=== PATIENT | male | born 1970 | race Caucasian/White ===

== ENCOUNTER 2020-03-03 12:00 | Outpatient (CLI) | payer BC, SELFPAY | END 2020-03-03 12:01 | disposition home or self-care (01) | LOC: SLEEP 03-05 11:01 | PROVIDERS: Family Provider Family Medicine; PCP Family Medicine; Visit Provider Family Medicine | DX: G47.10 Hypersomnia, unspecified (principal) | CPT/HCPCS: G0399 ==

== ENCOUNTER 2020-09-22 23:21 | Inpatient (IN) | payer SELFPAY ==
--- NOTE | 2020-09-22 23:25 | XRR_ITS ---
PROCEDURE INFORMATION: Exam: XR Chest Exam date and time: 09/22/2020 11:37 PM Age: 49 years old Clinical indication: Patient HX: Epigastric pain 2-3 days; Additional info: Cp TECHNIQUE: Imaging protocol: XR of the chest Views: Frontal portable upright view of the chest. COMPARISON: No relevant prior studies available. FINDINGS: Tubes, catheters and devices: EKG leads are present overlying the chest. Lungs: The lungs are clear bilaterally. The pulmonary vasculature is normal. Pleural spaces: No pleural effusion. No pneumothorax. Heart/Mediastinum: The heart is normal in size and contour. Bones/joints: Leftward midthoracic spinal curvature. No acute chest wall abnormality identified. XR/XR chest 1V portable [id number] IMPRESSION: No acute cardiopulmonary abnormality identified.
--- NOTE | 2020-09-22 23:26 | ECG_ITS ---
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 Measurements Intervals [place] Rate: 83 P: 36 MO: 150 QRS: 19 QRSD: 98 T: 65 QT: 360 QTc: 425 Interpretive Statements SINUS RHYTHM NONSPECIFIC ST & T-WAVE ABNORMALITY No previous ECG available for comparison Electronically Signed On 09-23-2020 23:49:54 ASSISTANT PROFESSOR OF SPANISH by Omer Elliott M.D. [id number] f
[2020-09-22 23:28] VITALS: BP 186/121; PULSE 81; RESP 18; TEMP 36.7; O2SAT 97; BMI 30.5
[2020-09-22] MEDS: lidocaine 2% viscous 15 ML, aluminum-mag hydrox-simethicon 30 ML, sucralfate oral liq 1 GM PO (23:33)
--- NOTE | 2020-09-22 23:39 | ED_ITS ---
HPI - Abdominal Pain General: Chief Complaint: Abdominal Pain Stated Complaint: chest pain, poss gastritis, 910 pain Time Seen by Provider: 09/22/20 23:27 Source: patient Mode of arrival: ambulatory Limitations: no limitations History of Present Illness: HPI narrative: 49-year-old male states that over the last 3 days has been having epigastric abdominal pain along with chest pain. States his pain seems to come anytime he eats and is a sharp burning pain in his upper abdomen. He states tonight after he ate he started having pain he rated a 6 out of 10. Denies any shortness of breath. Denies any worsening improving factors. Denies any vomiting diarrhea. Associated Symptoms: Denies chills, diarrhea, dysuria, fever(s), nausea and vomiting Review of Systems Const: Denies: fever(s), chills, body aches or change in appetite Eyes: Denies: blurry vision or eye discomfort ENMT: Denies: throat pain or dental pain Card: Reports: chest pain Resp: Denies: dyspnea GI: Denies: abdominal pain, nausea, vomiting or diarrhea : Denies: dysuria Musc: Denies: neck pain or back pain Skin/Breast: Denies: rash Neuro: Denies: headache(s) Psych: Denies: depression Rene/Lymph: Denies: easy bruising All/Imm: Denies: urticaria Physical Exam Const: COMMON NORMALS: no acute distress, patient oriented x3 and healthy appearing HENMT: COMMON NORMALS: normocephalic and atraumatic HEAD & SCALP: normocephalic and atraumatic Eye: COMMON NORMALS: Equal, round and reactive pupils present and EOMs intact bilaterally PUPIL: Yes Equal, round and reactive pupils present Neck/C-Spine: COMMON NORMALS: full ROM and supple Chest: COMMONS NORMALS: normal inspection of the chest and normal palpation of entire chest wall Resp: COMMON NORMALS: normal respiratory effort, No retractions, No use of accessory muscles and clear to auscultation bilaterally AUSCULTATION: clear to auscultation bilaterally Cardio: COMMON NORMALS: regular rate, regular rhythm and No murmurs present (Cardio) RATE: regular rate RHYTHM: regular rhythm GI: COMMON NORMALS: Normal to inspection, nondistended, normoactive bowel sounds present, Soft to palpation, non-tender and no masses PALPATION: Yes Soft to palpation Extremity: COMMON NORMALS: normal to inspection and full ROM Neuro: COMMON NORMALS: patient oriented x3, moves all extremities and no focal motor deficits Psych: COMMON NORMALS: mental status grossly normal, Normal thought process present and cooperative THOUGHT PROCESS: Normal thought process present Skin: COMMON NORMALS: no rashes or lesions noted and no wounds GENERAL SKIN EXAM: no rashes or lesions noted Course Vital Signs: Vital signs: Vital Signs Temperature 98.1 F 09/22/20 23:28 Pulse Rate 89 09/23/20 00:51 Respiratory Rate 18 09/23/20 00:51 Blood Pressure 167/109 09/23/20 00:51 Pulse Oximetry 97 09/23/20 00:51 MDM - Abdominal Pain MDM Narrative: Medical decision making narrative: Patient presents here with chest pain and has an elevated troponin. This is consistent with an NSTEMI. Patient's pain was actually relieved here with a GI cocktail. I spoke to the hospitalist will admit at this time. Patient given Lovenox in the ER. Lab Data: Labs: Lab Results 09/22/20 09/22/20 09/22/20 Range/Units 23:00 23:00 23:00 WBC 11.6 H (4.0-10.0) 10^3/ uL RBC 5.34 H (4.1-5.3) 10^6/u L Hgb 17.2 H (11.7-16.6) g/dL Hct 48.3 (42.0-52.0) % MCV 90.4 (80-94) fL MCH 32.2 (28.0-34.0) pg MCHC 35.6 (30.0-36.0) g/dL RDW 12.2 (12.1-15.1) % Plt Count 296 (130-400) 10^3/c mm MPV 9.3 (7.4-10.4) fL Neut % (Auto) 77.7 % Lymph % (Auto) 12.8 % [place] % (Auto) 7.6 % Eos % (Auto) 0.9 % Baso % (Auto) 0.6 % Neut # (Auto) 9.03 H (1.8-7.7) 10^3/u L Lymph # (Auto) 1.5 (0.8-4.8) 10^3/u L [place] # (Auto) 0.9 (0.2-0.9) 10^3/u L Eos # (Auto) 0.1 (0.0-0.8) 10^3/u L Baso # (Auto) 0.1 (0.0-0.1) 10^3/u L Nucleated RBC % (a uto) 0 % Nucleated RBCs # 0.0 /100WBC Sodium 136 (136-145) mmol/L Potassium 3.6 (3.5-5.1) mmol/L Chloride 96 L (98-107) mmol/L Carbon Dioxide 26 (22-29) mmol/L Anion Gap 17.6 (5-19) BUN 9 (6-20) mg/dL Creatinine 0.9 (0.7-1.2) mg/dL GFR Calculation 89.3 L (90-130) mL/min Glucose 172 H (65-115) mg/dL Calculated Osmolal ity 285 (285-295) mOsm/k g Calcium 9.9 (8.5-10.5) mg/dL Total Bilirubin 0.4 (0.15-1.2) mg/dL AST 25 (0-40) U/L ALT 25 (0-41) U/L Alkaline Phosphata se 95 (40-130) IU/L Troponin T Baselin e 154 H* (0-15) ng/L Total Protein 7.1 (6.6-8.7) g/dL Albumin 4.2 (3.5-5.2) g/dL Globulin 2.9 (1.3-4.6) g/dL Lipase 42 (13-60) U/L Imaging Data ^: CXR: Attestation: I personally reviewed and interpreted this imaging study as follows: My impression: no acute abnormality EKG Data ^: EKG 1: Attestation: I personally reviewed and interpreted this EKG as follows: EKG interpretation date: 09/22/20 EKG interpretation time: 23:26 Interpretation: nsr hr [address] depression in v2 and v3 no t wave abnormalities qrs 98 qtc 400 Discharge Plan Discharge Patient Disposition: Admitted As Inpatient Clinical Impression: Non-ST elevation PR (NSTEMI) Condition: Stable Coding Level of Care Code ED Experimental Assembler for Chg Fwd Exam Comprehensive
[2020-09-23] VITALS (37 sets, daily range): BP systolic 115–167; BP diastolic 76–109; PULSE 68–89; RESP 13–25; TEMP 37.1–37.5; O2SAT 84–98
[2020-09-23 00:08] LABS: Basophils # 0.1 10^3/uL (0.0-0.1); Basophils % 0.6 %; Eosinophils # 0.1 10^3/uL (0.0-0.8); Eosinophils % 0.9 %; Hematocrit 48.3 % (42.0-52.0); Hemoglobin 17.2 g/dL (11.7-16.6); Lymphocytes # 1.5 10^3/uL (0.8-4.8); Lymphocytes % 12.8 %; Mean Corpuscular HGB Conc 35.6 g/dL (30.0-36.0); Mean Corpuscular Hemoglobin 32.2 pg (28.0-34.0); Mean Corpuscular Volume 90.4 fL (80-94); Mean Platelet Volume 9.3 fL (7.4-10.4); Monocytes # 0.9 10^3/uL (0.2-0.9); Monocytes % 7.6 %; Neutrophils # 9.03 10^3/uL (1.8-7.7); Neutrophils % 77.7 %; Nucleated Red Blood Cells % 0 %; Platelet Count 296 10^3/cmm (130-400); Red Blood Count 5.34 10^6/uL (4.1-5.3); Red Cell Distribution Width 12.2 % (12.1-15.1); White Blood Count 11.6 10^3/uL (4.0-10.0)
[2020-09-23 00:40] LABS: Alanine Aminotransferase 25 U/L (0-41); Albumin Level 4.2 g/dL (3.5-5.2); Alkaline Phosphatase 95 IU/L (40-130); Aspartate Amino Transferase 25 U/L (0-40); Blood Urea Nitrogen 9 mg/dL (6-20); Calcium 9.9 mg/dL (8.5-10.5); Carbon Dioxide 26 mmol/L (22-29); Chloride 96 mmol/L (98-107); Globulin 2.9 g/dL (1.3-4.6); Glomerular Filtration Rate 89.3 mL/min (90-130); Glucose 172 mg/dL (65-115); Lipase 42 U/L (13-60); Osmolality Calculated 285 mOsm/kg (285-295); Sodium 136 mmol/L (136-145); Total Bilirubin 0.4 mg/dL (0.15-1.2); Total Protein 7.1 g/dL (6.6-8.7)
[2020-09-23 00:45] LABS: Anion Gap 17.6 (5-19); Potassium 3.6 mmol/L (3.5-5.1)
[2020-09-23 00:46] LABS: Troponin(5th) Baseline 154 ng/L (0-15)
[2020-09-23] MEDS: enoxaparin 100 mg/mL Syringe SUBCUT ×2 (00:54→12:38)
[2020-09-23] MEDS: ondansetron 2 mg/ML SDV 2 mL 4 MG IVP (01:19)
[2020-09-23] MEDS: LORazepam 2 mg/mL INJ 1 mL 1 MG IVP (01:19)
--- NOTE | 2020-09-23 01:36 | PM.HP ---
Providers/Chief Complaint Admitting Physician: Beny Landin MD Primary Care Provider: Edmar Hamm MD Chief Complaint: chest pain, poss gastritis, 910 pain History of Present Illness Reg Valentine is a 49 year old male with a past medical history of acid reflux, hypertension who presents to [facility] due to substernal burning sensation and chest discomfort. 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 He tells me for the last 5 days or so he has had some substernal chest discomfort and burning sensation, he thought it was acid reflux, so he tried medications for acid reflux, the pain seemed to be associated with meals, however the pain would not subside with any medication, usually would subside after a few minutes. Patient tells me that there was no associated shortness of breath, no diaphoresis, no radiation, no lightheadedness, dizziness, no nausea, no vomiting. He tells me that over the end next few days, the pain became much more severe, much more substantial, lasting longer up to 30 minutes, and finally his who is at bedside forced him to come to the hospital. He did have one episode of chest discomfort burning sensation in the ER, was given a GI cocktail with improving of symptoms. Currently symptom-free. He is EKG did show ST depressions in the anterior leads, and his baseline troponin is 154. Review of Systems Const: Denies: fever(s), chills, fatigue or malaise Eyes: Denies: change in vision or blurry vision ENMT: Denies: nasal congestion Card: Reports: chest pain; Denies: palpitations, irregular heart rhythm, edema, syncope or pre-syncope Resp: Denies: dyspnea, productive cough, non-productive cough or wheezing GI: Denies: abdominal pain, nausea, vomiting, hematemesis, diarrhea, constipation, hematochezia or melena : Denies: flank pain, difficulty urinating, dysuria or urinary frequency Musc: Denies: neck pain or back pain Skin/Breast: Denies: rash Neuro: Denies: headache(s), dizziness or vertigo Psych: Denies: anxiety or depression Endo: Denies: polyuria or polydipsia Medications/Allergies Allergies Allergy/AdvReac Type Severity Reaction Status Date / Time No Known Allergies Allergy Verified 09/22/20 23:27 PFSH Acute PFSH: Medical History (Updated 09/23/20 @ 01:39 by Beny Landin MD) GERD (gastroesophageal reflux disease) Hypertension Surgical History (Updated 09/23/20 @ 01:40 by Beny Landin MD) No pertinent past surgical history Family History (Updated 09/23/20 @ 01:40 by Beny Landin MD) Father CAD (coronary artery disease), Onset Age: 40 Brother Renal cell carcinoma Social History (Updated 09/23/20 @ 01:41 by Beny Landin MD) Smoking and tobacco status: current every day smoker Alcohol intake: current Alcohol intake frequency: few times a week Substance/Drug Use: never Vitals/I&O/Wt Last Vital Signs Temp 98.1 F 09/22/20 23:28 Pulse 89 09/23/20 00:51 Resp 18 09/23/20 00:51 BP 167/109 09/23/20 00:51 Pulse Ox 97 09/23/20 00:51 Weight last 48 hrs Weight 102.058 kg Physical Exam Const: COMMON NORMALS: no acute distress and patient oriented x3 GENERAL APPEARANCE: cooperative and comfortable HENMT: COMMON NORMALS: normocephalic HEAD & SCALP: normocephalic Eye: COMMON NORMALS: Equal, round and reactive pupils present and EOMs intact bilaterally GENERAL EYE: appearance normal, both eyes and all related structures PUPIL: Yes Equal, round and reactive pupils present Neck/C-Spine: COMMON NORMALS: full ROM, no lymphadenopathy, no JVD and Thyroid normal THYROID: Thyroid normal Lymph: LYMPHATIC: no lymphadenopathy noted Resp: COMMON NORMALS: normal respiratory effort, No retractions, No use of accessory muscles and clear to auscultation bilaterally AUSCULTATION: clear to auscultation bilaterally Cardio: COMMON NORMALS: no JVD, regular rate, regular rhythm, S1 normal heart sound present, S2 normal heart sound present, No gallops present (Cardio), No clicks present (Cardio) and No murmurs present (Cardio) RATE: regular rate RHYTHM: regular rhythm HEART SOUNDS: S1 normal heart sound present and S2 normal heart sound present GI: COMMON NORMALS: Normal to inspection, nondistended, normoactive bowel sounds present, Soft to palpation, non-tender and No hepatosplenomegaly present PALPATION: Yes Soft to palpation and Yes No hepatosplenomegaly present Extremity: COMMON NORMALS: normal to inspection, full ROM and no pedal edema Neuro: COMMON NORMALS: patient oriented x3, CN's II-XII intact bilaterally, moves all extremities and no focal motor deficits Psych: COMMON NORMALS: mental status grossly normal, Normal thought process present and cooperative THOUGHT PROCESS: Normal thought process present Data : 09/22/20 23:00 09/22/20 23:00 A&P Assessment and plan (1) Non-ST elevation IN (NSTEMI): -Atypical chest pain -Does have a family history of CAD in his father is in the 40s -He is a smoker -EKG shows ST depressions in anterior chest leads -Baseline troponin I 154 -Currently chest pain-free Plan: -Aspirin, statin, beta-genny -Therapeutic Lovenox -Serial EKGs, serial troponins, telemetry monitoring -Cardiac echocardiogram -Monitor for chest discomfort -I spoke to Dr. Elliott, will see how his cardiac echo looks tomorrow morning, we might proceed to a cardiac catheterization in the afternoon as the morning schedules quite busy, however if there is a change certainly can be done earlier -I have kept patient n.p.o., patient can have a light breakfast if his troponins trend downward and he remains symptom-free -Full code -Lovenox for DVT prophylaxis Status: Acute Attestations Medical Necessity Statement*: Patient requires hospitalization, outpatient with observation for NSTEMI Coding Level of Care Code Acute Family Service Aide for [facility]ip Diagnoses Non-ST elevation IN (NSTEMI) I21.4
--- NOTE | 2020-09-23 01:37 | USCV_ITS ---
Reg Valentine Age: 49 Gender: M : 1970 Exam Date: 09/23/2020 06:38 Ordering Phys: Beny Landin MD Technologist: Earl Christian [place]am [place] [facility] [place]ication: CHEST PAIN BP: 130 / 83 HR: 68 Rhythm: Sinus Technical Quality: Adequate MEASUREMENTS (Male / Female) Normal Values 2D ECHO LVOT Diameter 2.1 cm LV Ejection Fraction MOD 2C 65.6 % LV Ejection Fraction 2C AL 65.7 % LA Diameter 3.8 cm LA Width 3.8 cm LA Height 4.5 cm RA Width 2.8 cm RA Height 4.3 cm Aorta at Sinotubular Diameter 3.2 cm M-MODE LV Diastolic Diameter MM 5.3 cm 4.2 - 5.9 / 3.9 - 5.3 cm LV Systolic Diameter MM 3.4 cm LV Ejection Fraction MM Teich 66.4 % IVS Diastolic Thickness MM 1.1 cm 0.6 - 1.0 / 0.6 - 0.9 cm IVS Systolic Thickness MM 1.7 cm LVPW Diastolic Thickness MM 1.3 cm 0.6 - 1.0 / 0.6 - 0.9 cm LVPW Systolic Thickness MM 1.9 cm RV Diastolic Diameter MM 0.8 cm MV E Point Septal Separation 1.5 cm DOPPLER AV Peak Velocity 98.0 cm/s LVOT Peak Velocity 98.0 cm/s AV Area Cont Eq vti 3.3 cm squared AV Area Cont Eq pk 3.5 cm squared MV Area PHT 5.0 cm squared Mitral E to A Ratio 1.0 MV E' Velocity 34.5 cm/s Mitral E to MV E' Ratio 6.5 Mitral E to LV E' Lateral Ratio 7.4 Mitral E to LV E' Septal Ratio 5.8 TR Peak Velocity 113.0 cm/s TR Peak Gradient 5.1 mmHg TV Peak E Velocity 77.0 cm/s Right Atrial Pressure 3.0 mmHg Pulmonary Artery Systolic Pressu 8.1 mmHg PV Peak Velocity 85.0 cm/s FINDINGS Left Ventricle Normal left ventricular size and systolic function, EF 64 %. Mild hypokinesia of the basal inferior wall segment Right Ventricle The right ventricle is normal in size and function. Right Atrium The right atrium is normal in size. Left Atrium The left atrium is normal in size. Mitral Valve Trace mitral valve regurgitation. Aortic Valve No gross abnormalities noted Tricuspid Valve No gross abnormalities noted Pulmonic Valve Not visualized well Pericardium Normal pericardium without effusion. Aorta Normal ascending aorta dimension. CONCLUSIONS Normal left ventricular size and systolic function, EF 64 %. Mild hypokinesia of the basal inferior wall segment. Trace mitral valve regurgitation. There is no pericardial effusion. There are no intracardiac masses. No previous study is available for comparison. Dr Omer Elliott MD FACC (Electronically Signed) Final Date: 23 September 2020 13:02 S
[2020-09-23 02:03] LABS: Chol HDL Ratio 8.72 mg/dL (1.0-5.00); Cholesterol 279 mg/dL (0-200); HDL Cholesterol 32 mg/dL (60-100); Triglycerides 564 mg/dL (0-150)
[2020-09-23] MEDS: aspirin 325 mg EC Tablet PO (02:07)
[2020-09-23] MEDS: atorvastatin 40 mg Tablet PO (02:07)
[2020-09-23 02:08] LABS: Estmated Average Glucose 108; Hemoglobin A1C 5.4 % (4.0-6.0)
[2020-09-23 02:12] LABS: NT Pro B Type Natriuretic Pept 392 pg/mL (0-125); Thyroid Stimulating Hormone 3.63 uIU/mL (0.27-4.20)
[2020-09-23 02:16] LABS: LDL Cholesterol Direct 185 mg/dL (0-100)
[2020-09-23] MEDS: sodium chloride 0.9% 1,000 ML 75 ML IV ×2 (02:16→14:14)
--- NOTE | 2020-09-23 02:30 | PC.NURSE ---
Addendum entered by Kiera Lee RN 09/23/20 03:23: Upon arrival to the floor patient stated his pain was a zero or one. He pointed to midline upper abdomen/epigastric area. Original Note: Patient arrived to the floor after report was received via phone. Patient is alert and oriented and ambulatory. Patient has been oriented to his room and has call light within reach. Patient is on room air, in SR, and VSS. Dr. Landin notified of patient taking Metoprolol 25 BID at home. Ordered to change the order to his home dose. Patient states he already took his nighttime dose. Ordered to non-admin dose that is due now. Patient is refusing a gown at this time.
--- NOTE | 2020-09-23 05:26 | ECG_ITS ---
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 Measurements Intervals [place] Rate: 73 P: 44 SD: 160 QRS: 18 QRSD: 90 T: 90 QT: 385 QTc: 426 Interpretive Statements SINUS RHYTHM NONSPECIFIC T-WAVE ABNORMALITY Compared to ECG 09/22/2020 23:26:50 No significant changes Electronically Signed On 09-23-2020 23:56:33 CALL CENTER PROFESSIONAL by Omer Elliott M.D. [id number]
[2020-09-23 05:39] LABS: Troponin 5 6HR 575.1 ng/L (0-15); Troponin 5 6HR Delta 421.1 ng/L (0-12)
--- NOTE | 2020-09-23 08:44 | P.CONIM_ITS ---
Providers/Reason For Consult Consulting Physican/Specialty*: HONORIO Elliott MD/cardiology Reason for Consult*: Patient with chest pain and elevated troponin T Attending Physician: Chris Martin MD Primary Care Provider: Edmar Hamm MD History of Present Illness History of Present Illness Reg Valentine is a 49 year old male with a history of hypertension and dyslipidemia, apparently has been his baseline state of health up until last when he started having epigastric discomfort soon after the meals. He had prolonged episodes of recurrent epigastric discomfort since yesterday evening. He decided to come to the hospital last night since the symptoms are not subsiding. He was found to have elevated troponin T. Cardiology consult is requested for further cardiac evaluation recommendations. Patient has a strong family history for premature atherosclerotic heart disease. His father had a myocardial infarction in his 40s. This patient has a history of high blood pressure and dyslipidemia. He has been taking medications. He has a history of GERD for many years. However since last , his symptoms are somewhat different. He described as a pressure-like /heavy sensation, in the epigastric region, sometimes radiating to the chest on both sides. He may have some nausea. Also may have some amount of shortness of breath. No palpitation, dizziness or syncopal episodes. No fever or chills. No cough. Yesterday he came home after work and ate some peanut butter cookies. According to the patient, soon after this, he started having the symptoms. Usually it may last for 20 to 30 minutes and then goes away by itself. This time the symptoms were more severe and is lasting for an hour or so. Even though he had some relief of the symptoms after this, he had a multiple recurrence. He had a prolonged episode of pain associated with some nausea and shortness of breath last night. For the symptoms, he was brought to the emergency room. He has no previous history for coronary artery disease, myocardial infarction or congestive heart failure. He has been fairly healthy and active. He has not been taking medicine for the cholesterol but has been on antihypertensive medications. The blood pressure has been fairly in the normal range. Denies any fever or chills. No cough. No other specific complaints. Review of Systems Narrative: CONSTITUTIONAL: No fever or chills. EYES: No blurring of vision or other visual disturbances lately. ENT: No hoarseness of voice, auditory disturbances or sore throat. CARDIOVASCULAR: As mentioned above. RESPIRATORY: No significant cough. GASTROINTESTINAL: Nausea and epigastric discomfort as mentioned above. GENITOURINARY: No dysuria or hematuria. INTEGUMENTARY: No skin rashes or history of skin cancer. NEURO: No transient ischemic attacks or amaurosis. PSYCHIATRIC: No history of psychosis or major depression. HEMATOLOGIC: No bleeding disorders or significant anemia. ENDOCRINE: No history of polyuria or polydipsia. MUSCULOSKELETAL: No recent joint pain or swelling. ALLERGY/IMMUNOLOGY: As mentioned above. Meds/Allergies Home Medications and Allergies Home Medications Medication Instructions Recorded Confirmed Last Taken Type metoprolol tartrate 25 mg PO BID 09/23/20 09/23/20 1 Day Ago History ~09/22/20 sertraline [Zoloft] 100 mg PO BEDTIME 09/23/20 09/23/20 1 Day Ago History ~09/22/20 Allergies Allergy/AdvReac Type Severity Reaction Status Date / Time No Known Allergies Allergy Verified 09/22/20 23:27 Current Medications Current Medications Generic Name Dose Route Start Last Admin Trade Name Freq PRN Reason Stop Dose Admin Sodium Chloride 1,000 mls @ 75 mls/hr 09/23/20 01:45 09/23/20 02:16 Sodium Chloride 0.9% IV 75 mls/hr .[id number] RADHA Administration PFSH Acute PFSH: Medical History GERD (gastroesophageal reflux disease) Hypertension Surgical History No pertinent past surgical history Family History Father CAD (coronary artery disease), Onset Age: 40 Brother Renal cell carcinoma Social History Smoking and tobacco status: current every day smoker Alcohol intake: current Alcohol intake frequency: few times a week Substance/Drug Use: never Vitals/I&O/Wt Last Vital Signs Temp 99.2 F 09/23/20 07:12 Pulse 69 09/23/20 08:22 Resp 16 09/23/20 07:12 BP 125/87 09/23/20 07:12 Pulse Ox 91 09/23/20 08:22 09/22/20 09/23/20 09/23/20 22:59 06:59 14:59 Intake Total 50 / 50 Balance 50 / 50 Weight last 48 hrs Weight 227 lb 4.8 oz Weight 225 lb Physical Exam Narrative: EXAM NARRATIVE: GENERAL: The patient is alert and oriented times three. Not in any acute distress. HEENT: No significant pallor, icterus or lymphadenopathy. The pupils are reactant to light. Oral cavity: There are no mucous membrane lesions. Funduscopic examination: The fundus is not visualized NECK: Trachea appears to be central. No masses noted. No JVD or thyromegaly appreciated. No carotid bruit. RESPIRATORY: Chest is symmetrical. No intercostals muscle retraction or any accessory muscle activation. There is no chest wall tenderness. Breath sounds are heard bilaterally. No rales or rhonchi heard. No evidence of any consolidation. BREASTS: Deferred. HEART: The PMI could not be palpated. No other palpable precordial events. First second heart sounds normal . No S3 or S4. No significant murmurs. ABDOMEN: No vessel pulsations or distention. No tenderness. No organomegaly appreciated. No abdominal bruit. Bowel sounds are normally heard. : Deferred. RECTAL: Deferred. LYMPHATIC: No lymphadenopathy noted in the neck or groin. EXTREMITIES: No edema or cyanosis. No clubbing. The pulses are symmetrical bilaterally. The radial, femoral, dorsalis pedis and the posterior tibial pulses are palpated and found to be in good volume and amplitude. MUSCULOSKELETAL: No acute joint deformities or swelling. SKIN: There are no significant scars or skin rash noted. NEUROPSYCHIATRIC: The patient is alert and oriented x3. Appears to be in a good mood. The higher functions are grossly within normal limits. No tremors or rigidity noted. Data Labs: Other Labs: Laboratory Last Values WBC 11.6 10^3/uL (4.0 -10.0) H 09/22/20 23:00 RBC 5.34 10^6/uL (4.1 -5.3) H 09/22/20 23:00 Hgb 17.2 g/dL (11.7-1 6.6) H 09/22/20 23:00 Hct 48.3 % (42.0-52.0 ) 09/22/20 23:00 MCV 90.4 fL (80-94) 09/22/20 23:00 MCH 32.2 pg (28.0-34. 0) 09/22/20 23:00 MCHC 35.6 g/dL (30.0-3 6.0) 09/22/20 23:00 RDW 12.2 % (12.1-15.1 ) 09/22/20 23:00 Plt Count 296 10^3/cmm (130 -400) 09/22/20 23:00 MPV 9.3 fL (7.4-10.4) 09/22/20 23:00 Neut % (Auto) 77.7 % 09/22/20 23:00 Lymph % (Auto) 12.8 % 09/22/20 23:00 [place] % (Auto) 7.6 % 09/22/20 23:00 Eos % (Auto) 0.9 % 09/22/20 23:00 Baso % (Auto) 0.6 % 09/22/20 23:00 Neut # (Auto) 9.03 10^3/uL (1.8 -7.7) H 09/22/20 23:00 Lymph # (Auto) 1.5 10^3/uL (0.8- 4.8) 09/22/20 23:00 [place] # (Auto) 0.9 10^3/uL (0.2- 0.9) 09/22/20 23:00 Eos # (Auto) 0.1 10^3/uL (0.0- 0.8) 09/22/20 23:00 Baso # (Auto) 0.1 10^3/uL (0.0- 0.1) 09/22/20 23:00 Nucleated RBC % (a uto) 0 % 09/22/20 23:00 Nucleated RBCs # 0.0 /100WBC 09/22/20 23:00 Sodium 136 mmol/L (136-1 45) 09/22/20 23:00 Potassium 3.6 mmol/L (3.5-5 .1) 09/22/20 23:00 Chloride 96 mmol/L (98-107 ) L 09/22/20 23:00 Carbon Dioxide 26 mmol/L (22-29) 09/22/20 23:00 Anion Gap 17.6 (5-19) 09/22/20 23:00 BUN 9 mg/dL (6-20) 09/22/20 23:00 Creatinine 0.9 mg/dL (0.7-1. 2) 09/22/20 23:00 GFR Calculation 89.3 mL/min (90-1 30) L 09/22/20 23:00 Glucose 172 mg/dL (65-115 ) H 09/22/20 23:00 Estimat Average Gl ucose 108 09/22/20 23:00 Hemoglobin A1c 5.4 % (4.0-6.0) 09/22/20 23:00 Calculated Osmolal ity 285 mOsm/kg (285- 295) 09/22/20 23:00 Calcium 9.9 mg/dL (8.5-10 .5) 09/22/20 23:00 Total Bilirubin 0.4 mg/dL (0.15-1 .2) 09/22/20 23:00 AST 25 U/L (0-40) 09/22/20 23:00 ALT 25 U/L (0-41) 09/22/20 23:00 Alkaline Phosphata se 95 IU/L (40-130) 09/22/20 23:00 Troponin T Baselin e 154 ng/L (0-15) H* 09/22/20 23:00 Troponin T 120 Min [place] 245.0 ng/L (0-15) H 09/23/20 01:29 Delta Troponin T 91.0 ABS# (0-10) H* 09/23/20 01:29 Troponin T Hi Sens 6Hr 575.1 ng/L (0-15) H 09/23/20 04:45 Troponin T Hi Sens 6Hr Delta 421.1 ng/L (0-12) H* 09/23/20 04:45 NT-Pro-B Natriuret Pep 392 pg/mL (0-125) H 09/23/20 01:29 Total Protein 7.1 g/dL (6.6-8.7 ) 09/22/20 23:00 Albumin 4.2 g/dL (3.5-5.2 ) 09/22/20 23:00 Globulin 2.9 g/dL (1.3-4.6 ) 09/22/20 23:00 Triglycerides 564 mg/dL (0-150) H 09/23/20 01:29 Cholesterol 279 mg/dL (0-200) H 09/23/20 01:29 LDL Cholesterol Di rect 185 mg/dL (0-100) H 09/23/20 01:29 LDL Cholesterol, C alc Not Reportable 09/23/20 01:29 HDL Cholesterol 32 mg/dL (60-100) L 09/23/20 01:29 LDL/HDL Ratio Not Reportable 09/23/20 01:29 Cholesterol/HDL Ra pattie 8.72 mg/dL (1.0-5 .00) H 09/23/20 01:29 Lipase 42 U/L (13-60) 09/22/20 23:00 TSH 3.63 uIU/mL (0.27 -4.20) 09/23/20 01:29 A&P Assessment and plan (1) Non-ST elevation CO (NSTEMI): Patient is a clinical features are consistent with unstable angina, complicated with non-ST relation myocardial infarction. Currently he seems to be stable. He may be treated with subcu Lovenox, aspirin, Plavix and a statin drug. Because of his relative bradycardia, I may hold off on the beta-genny at this time. Status: Acute (2) GERD (gastroesophageal reflux disease): Patient may be treated with an H2 genny. Status: Acute Qualifiers: Esophagitis bleeding: without hemorrhage Esophagitis presence: with esophagitis Qualified Code(s): K21.00 - Gastro-esophageal reflux disease with esophagitis, without bleeding (3) Benign essential hypertension with target blood pressure below 140/90: Currently normotensive. Continue on the current medications. Status: Acute (4) Dyslipidemia: Continue on the current medications. Status: Acute Additional A&P Information Based on the patient's clinical progress and the results of the above, further recommendations will be made. Thank you for the opportunity to eval this patient and make these recommendations Addendum The echocardiogram revealeda mild hypokinesia of the basal inferior wall segment. Normal overall LV ejection fraction. In view of the patient's presenting symptoms and the other clinical features, in order to further evaluate his coronary status, a cardiac catheterization would be appropriate. The risk of bleeding, hematoma, vascular injury, myocardial infarction, CVA, renal failure and other concomitant complications were explained in detail. Patient understood this well and consented to proceed. We may go ahead and schedule this procedure as early as possible in the hospital. Consult Attestations Medical Necessity Statement: Patient requires continued hospital stay for close monitoring and further management Coding Level of Care Code Acute Cylinder Batcher for Chg Fwd Diagnoses Non-ST elevation CO (NSTEMI) I21.4 GERD (gastroesophageal reflux disease) K21.00 Esophagitis bleeding: without hemorrhage Esophagitis presence: with esophagitis Benign essential hypertension with target blood pressure below 140/90 I10 Dyslipidemia E78.5
--- NOTE | 2020-09-23 09:04 | PM.PN ---
Subjective Subjective: Interval history: Patient was laying comfortably in his bed when I entered the room, he did not complain of any active chest pain, patient felt burning sensation substernally after dinner yesterday which was not getting better that prompted his visit to the ER, in the ER he was diagnosed with NSTEMI. He is n.p.o. Hemodynamically stable not complaining of active chest pain, was resting comfortably this morning In the ER he was given therapeutic dose of Lovenox along GI cocktail Ativan which seemed to resolve his symptoms Vitals/I&O/Wt Last Vital Signs Temp 99.2 F 09/23/20 07:12 Pulse 69 09/23/20 08:22 Resp 16 09/23/20 07:12 BP 125/87 09/23/20 07:12 Pulse Ox 91 09/23/20 08:22 09/22/20 09/23/20 09/23/20 22:59 06:59 14:59 Intake Total 50 / 50 Balance 50 / 50 Weight last 48 hrs Weight 103.102 kg Weight 102.058 kg Physical Exam Narrative: EXAM NARRATIVE: Middle-age male was resting comfortably when I entered the room Normal hemodynamics, appears stated age S1, S2 sinus rhythm no murmur appreciated Abdomen distended bowel sound present no abdominal tenderness GCS 15 awake alert oriented x3 No neurological deficit Low extremity no edema gangrene ulcer No acute respite distress saturating well on room air Appropriate mood and affect Chest pain-free EOMI, PERRLA Data : 09/22/20 23:00 09/22/20 23:00 A&P Assessment and plan (1) Non-ST elevation RI (NSTEMI): Status: Acute (2) Nicotine dependence: Status: Acute Additional A&P Information NSTEMI Elevated troponin with ST depression in anterior leads Currently chest pain-free with normal hemodynamic Multiple risk factors including smoking, age, sex, family history Currently awaiting echo Cardiology is consulted Currently n.p.o. for an angiogram We will follow up with cardiology recommendation I have started him on Toprol instead of Metroprolol tartrate which was started on admission, added atorvastatin 80 mg and lisinopril Nicotine dependence: will recommend nicotine replacement therapy on discharge N.p.o. DVT prophylaxis not needed currently on therapeutic Lovenox Full code Attestations Medical Necessity Statement*: Anticipating stay in the hospital cross more than 2 midnights for NSTEMI and possible angiogram today Time Spent in Patient Care: (>than 50% of time spent in counselling and/or direct pt care on unit). 30mins Coding Level of Care Code Acute Multi Operation Machine Operator for Lauryn Shin Diagnoses Non-ST elevation RI (NSTEMI) I21.4 Nicotine dependence F17.200
[2020-09-23] MEDS: lisinopril 5 mg Tablet PO (09:43)
[2020-09-23] MEDS: famotidine 20 mg Tablet PO ×2 (09:43→17:38)
[2020-09-23] MEDS: metoprolol succinate ER (24 HR) 25 mg Tablet 12.5 MG PO (09:43)
[2020-09-23] MEDS: clopidogrel 300 mg Tablet PO (11:40)
[2020-09-23] MEDS: acetaminophen 325 mg Tablet 650 MG PO (14:12)
[2020-09-23] MEDS: diphenhydrAMINE 50 mg Capsule PO (16:25)
--- NOTE | 2020-09-23 18:00 | XACV_ITS ---
Exam Room: [facility] Ht: 183 cm Wt: 103 kg BSA: 2.31 m2 Gender: Male : 1970 Any Known Allergies: No known allergies Exam Priority: Routine Procedure(s): Procedure Description: Diagnostic procedure Procedure Description: PCI procedure Procedure Description: Left Heart Catheterization Procedure Description: Right Heart Catheterization Procedure Description: Coronary Angiography Diagnostic Cath Status: Urgent Diagnostic Findings * No significant disease noted in the Left Main, LAD, Circumflex, or RCA coronary arteries. * First Obtuse Marginal Branch Segment: has lesion. * Distal Right Coronary Artery: has lesion. * Coronary angiography shows right dominance. * The left main is a medium caliber vessel with no significant stenotic lesions. * The left anterior descending artery is a medium caliber vessel which appears to wrap around the LV apex. The mid LAD was found to have diffuse irregular narrowing of 40 to 50%. The distal LAD was found to have minimal intimal abnormalities.The first diagonal vessel is a medium caliber vessel with mild diffuse intimal irregularities. * The left circumflex artery is a medium caliber vessel with a 30 to 40% diffuse narrowing in the proximal segment. The first obtuse marginal branch was found to have around 95% ostial narrowing. The proximal segment was found to have 40 to 50% diffuse disease. No other significant stenotic lesions were seen. * The right coronary artery is a medium caliber dominant vessel which is found to have a tubular narrowing of around 50% right after the first RV branch. The distal segment of the artery was found to have a 50 to 60% napkin ring type of lesion. The PDA branch was found to have around 50% tubular narrowing at the mid segment. The PLV branch was found to have minimal intimal irregularities. Interventional Findings * First Obtuse Marginal Branch Segment: 90% stenosis treated with AB MINI TREK 2.00X12 RX BALLOON and MDT R ANIKA 2.25X12 SUE. 0% residual stenosis, CONNOR: 3 flow. Conclusions 1. No significant disease noted in the Left Main, LAD, Circumflex, or RCA coronary arteries. 2. 49-year-old white male with history of hypertension, dyslipidemia and a strong family history for premature atherosclerotic heart disease, presenting with symptoms and history of unstable angina. He had clinical features of a non-ST elevation myocardial infarction. In view of the patient is presenting symptoms and multiple risk factors for coronary artery disease, in order to further evaluate his coronary status, a cardiac catheterization was recommended. Patient underwent left heart catheterization with left and right coronary angiogram and LV angiogram plate. The findings are as follows. 3. The first obtuse marginal branch of the left circumflex artery was found to have a 95% lesion involving the ostium. Moderate disease in the distal RCA. Mild to moderate diffuse disease in the other vessels. LV ejection fraction was 55%. LVEDP of 20 mmHg. The cardiac catheterization data was reviewed and discussed with Dr. Grace. PCI of the OM1 lesion and possible FFR of the RCA lesion was thought to be appropriate. Dr. Grace took over further my suspicion at this point. 4. First Obtuse Marginal Branch Segment was treated with Balloon and Drug Eluting Stent. 5. FFR: After equalizing the distal and proximal pressure of FFR wire proximal to the lesion, distal RCA lesion was crossed with FFR wire. IV adenosine at rate of 140 mcg/min was started. Patient did not compliant of any symptoms, at then end of two minutes FFR was recorded as 0.84, which is not significant. Gradient pullback was also performed which did not show significant drop or stepup. Recommendations * 1-Return to inpatient for close monitoring and routine cath care 2-Risk factor modification for secondary prevention 3-Statin and aspirin 81 mg life--long, if tolerated 4-Continue Plavix 75mg p.o. daily for at least one year. We will assess at the end of one year again to continue if further or not 5-Continue optimal medical management 6-Follow up with Dr. Elliott in four weeks and your primary care in 10 days. Diagnostic RX Recommendation: PCI w/o planned CABG Ventriculography Ejection Fraction: 55.0 % LV EDP: 20 mmHg Left Ventriculography Findings: * The LV gram was performed in the ESCAMILLA projection. The LV cavity appears to be of normal size. There was no significant wall motion normalities. No significant mitral valve prolapse or mitral regurgitation. Pressures Phase:Rest AO : 105 / 63 ( 82 ) @ 2:40:00 PM 106 / 60 ( 82 ) @ 2:40:00 PM LV : 116 / -3 / @ 2:38:00 PM 117 / -3 / @ 2:39:00 PM 119 / -3 / @ 2:40:00 PM Valves Phase:DefaultPhase AV : 13.0 @ 8:54:40 PM AV Mean Gradient: 11.0 @ 8:54:40 PM Clinical Evaluation EBL: 5mL-10mL Procedural Details Procedure Consent Obtained. Pre-Procedure Time Out. Identified patient by full name and date of as verbalized by the patient/guarantor. Does the consent match the physician's order: Yes. Accurate & Complete Informed Consent: Yes. Inpatient/Outpatient History & Physical on Chart: Yes. If H&P is completed, is and addenduem needed: No; If yes, is the addendum complete: N/A. Visualize and Verify Site with Patient/Guarantor: N/A. Relevant Radiology Images available: N/A. Pre-op teaching completed and patient verbalized understanding. The risks, benefits, and alternatives of sedation and/or procedure were discussed by physician. The patient agrees to continue. Jabier Masters RRT was relieved by Emmanuelle Miller as monitoring person. Procedure started. Correct patient, site and procedure confirmed by cath team. PERRLA. Strong, equal hand security systems administrator bilaterally. Lungs clear x 5 lobes. IV Site on Arrival: 18 gauge in the left anticubital. IV Site on Arrival: Saline Lock. IV Fluids: 0.9% NaCl at KVO. 0 mL infused prior to quality control lab technician. Oxygen started at 2liters/min via nasal canula. Baseline sample Acquired. HR: 79 BPM. right radial was prepped with chloroprep then draped in the usual sterile fashion. Physician notified. Physician arrived. Physician scrubbed in. Immediate Pre-Procedure Time Out. Correct Patient: Yes; Correct Procedure: Yes; Correct Site: Yes; Correct Patient Position: Yes; Correct Supplies: Yes; Dried Flammable Prep: Yes; Blood Products Available: N/A;. Lidocaine 1% infiltrated to the right radial. Arterial access obtained. A [employer] Yetumo 5 Fr Angel Radial Catheter, 110cm was advanced over the wire and used for. A 5 icelandic Angel catheter in over wire. Catheter removed over the exchange wire. A 5 icelandic TIG catheter in over wire. Multiple views taken of left coronary artery. Catheter redirected to the RCA. A 6 icelandic Angled Pig catheter in over wire. Dr. Grace arrived. EDP Sample taken: LV 116/-4,15; HR: 85 BPM; SpO2: 99%. LV gram performed in ESCAMILLA @ 10 mL/second for a total of 30 mL. EDP Sample taken: LV 117/-4,15; HR: 85 BPM; SpO2: 99%. Pullback taken: LV 119/-4,16; AO 105/63(82); Mean: 11mmHg, Peak to Peak: 13mmHg, SEP: 18sec/min; HR: 85 BPM; SpO2: 98%. LV EDP: 55. ACT drawn. Dr. Elliott scrubbed out. Dr. Grace scrubbed in. ACT drawn. Results 140 seconds. Therapeutic limits - pre-heparin administration 90-150 seconds and monitoring heparin during a vascular procedure >250 seconds. Inventory is CRD 6 FR XB 3.5 GUIDE. Catheter out. Patient's family updated. Inventory is CRD 6FR JL 3.5 GUIDE. Catheter out. right groin was prepped with chloroprep then draped in the usual sterile fashion. A TR Band was successful obtaining hemostatsis at the Right Radial artery insertion site. Lidocaine 1% infiltrated to the right groin. Arterial access obtained with micropuncture set. A 6 icelandic CLS 3.5 catheter in over wire. 6 icelandic CLS 3.5 guide catheter was inserted over the wire. Inventory is Cap Thattronic [place] XT .014 190cm Str[address] Guidewire. [place] guidewire was advanced through the guide catheter to lesion in the OM. Inflation number : 1 A AB MINI TREK 2.00X12 RX BALLOON was prepped and advanced across the 1st Ob Adela , then inflated to 12 HAYLEY for 0:11 seconds. Balloon out. Inflation Number : 2 A MORRO Bonilla NAIKA 2.25X12 SUE -Lot Number# [id number] EXP: 05/26/2022 was prepped and advanced across the 1st Ob Adela. The stent was deployed at 12 HAYLEY for 0:14 seconds. Results checked. Stent balloon out over wire. Multiple view taken. Guide catheter out over wire. Inventory is CRD 6FR JR 4 GUIDE 100cm. ACT drawn. ACT drawn. Results 198 seconds. Therapeutic limits - pre-heparin administration 90-150 seconds and monitoring heparin during a vascular procedure >250 seconds. An FFR value of 0.84 was obtained for a lesion located at Dist RCA. Wire out. Adenosine stopped. Perclose placed without complications. No signs or symptoms of hematoma noted. Sterile dressing applied per usual sterile fashion. LOT #: [id number]. A Perclose ([employer]) was successful obtaining hemostatsis at the Right Femoral artery insertion site. Perclose failed, 7Fr sheath inserted. Medication's Wasted: Nitro = 49.8 mg. Medication's Wasted: Heparin = 1000 units. Total IV fluids: 400 mL. Complications: N/A. Estimated blood loss: 5mL-10mL. Procedure completed. Physician scrubbed out. PCI Indication: NSTEMI. Patient transferred by bed to 1st floor. Post-op diagnosis: NSTEMI. [facility] Clinical Fraility Score: 3: Managing Well. Cook Chill Technician Indications: ACS <= 24 hours. Chest Pain Symptom Assessment: Typical Angina Symptoms. Cardiovascular Instability: No. Vital chart was stopped. Access Site Site: Right Radial artery Sheath Size: 5 Fr Hemostasis Method: TR Band Hemostasis Success: Successful Site: Right Femoral artery Sheath Size: 6 Fr Hemostasis Method: Perclose ([employer]) Hemostasis Success: Successful Procedure Medications Start: 7:13 PM Stop: 7:13 PM Medication: Versed Amount: 1 mg Route: I.V. Start: 7:13 PM Stop: 7:13 PM Medication: Fentanyl Amount: 50 mcg Route: I.V. Start: 7:18 PM Stop: 7:18 PM Medication: Versed Amount: 1 mg Route: I.V. Start: 7:18 PM Stop: 7:18 PM Medication: Fentanyl Amount: 50 mcg Route: I.V. Start: 7:19 PM Stop: 7:19 PM Medication: 0.9% Saline Amount: 250 Route: I.V. bolus Start: 7:22 PM Stop: 7:22 PM Medication: Verapamil Amount: 5 mg Route: I.A. Start: 7:24 PM Stop: 7:24 PM Medication: Heparin Amount: 3000 units Route: I.V. Start: 7:50 PM Stop: 7:50 PM Medication: Versed Amount: 1 mg Route: I.V. Start: 7:50 PM Stop: 7:50 PM Medication: Fentanyl Amount: 50 mcg Route: I.V. Start: 7:50 PM Stop: 7:50 PM Medication: Heparin Amount: 7000 units Route: I.V. Start: 8:19 PM Stop: 8:19 PM Medication: Nitrogylcerin Amount: 200 mcg Route: I.A. Start: 8:28 PM Stop: 8:28 PM Medication: Heparin Amount: 3000 units Route: I.V. Start: 8:28 PM Stop: 8:28 PM Medication: Adenosine (Adenocard) Amount: 857 Start: 8:29 PM Stop: 8:29 PM Medication: Versed Amount: 1 mg Route: I.V. Start: 8:29 PM Stop: 8:29 PM Medication: Fentanyl Amount: 50 mcg Route: I.V. I, the attending physician, have reviewed and verified all procedure medications. Yes, all medications given per verbal order History/Risk Factors Hypertension: Yes Dyslipidemia: No Peripheral Arterial Disease (PAD): No Myocardial Infarction (DC): No Obesity: No Renal Disease: No Tobacco Use: Current/Recent(w/in 1 year) Prior Interventions PCI: No CABG: No Valve Surgery: No Report Signatures Interventional Workflow Finalized by Chris Grace MD on 10/05/2020 06:36 PM Diagnostic Workflow Finalized by Dr Omer Elliott MD [facility] on 09/24/2020 12:18 AM
--- NOTE | 2020-09-23 19:00 | PC.NURSE ---
Pt transferred to cathode ray tube salvage processor. Pt had no c/o pain or discomfort during transfer.
--- NOTE | 2020-09-23 19:13 | W.PM.OPSUD ---
Surgery/Procedure H&P Update DATE OF PROCEDURE: September 23, 2020 DATE H&P PERFORMED: 09/23/20 H&P UPDATE INFORMATION: I have reviewed H&P completed within last 30 days and I have examined patient prior to procedure PREOP DIAGNOSIS: NSTEMI PLANNED PROCEDURE: NSTEMI PATIENT REASSESSED PRIOR TO SEDATION, WITH NO CHANGE NOTED: Yes PHYSICAL EXAM: alert, clear to auscultation bilaterally and regular rate & rhythm AIRWAY EVAL/ANESTHESIA PLAN: normal airway, see other exam findings, ASA II, Monitored Anesthesia, Local Anesthesia, Risks, benefits & alternatives of sedation and/or procedure discussed and Patient agrees to continue as planned
[2020-09-23] MEDS: sodium chloride 0.9% 1,000 ML 100 ML IV (21:40)
[2020-09-23 23:33] LABS: Partial Thromboplastin Time > 250.0 SECONDS (23.9-36.7)
--- NOTE | 2020-09-23 23:40 | PC.NURSE ---
NURSE NOTE: CRITICAL LAB; APTT RESULT OF > [address] BURCIAGA AT THIS TIME. RECEIVED ORDERS TO REDRAW IN 2 HOURS. IF LESS THAN 45, OK TO PULL SHEATH. IF NOT, REPEAT AGAIN IN 2 HOURS UNTIL DESIRED RESULT. CALL AGAIN IF QUESTIONS. ALL VS AND ORDERS CHARTED.
[2020-09-24] VITALS (64 sets, daily range): BP systolic 113–140; BP diastolic 76–99; PULSE 68–92; RESP 10–26; TEMP 36.6–37.3; O2SAT 88–98
--- NOTE | 2020-09-24 00:50 | PC.NURSE ---
NURSE NOTE: PLACED CALL TO DR. TRAN AT THIS TIME TO ASK IF WANTED ME TO GIVE 0100 DOSE OF LOVENOX 100MG SQ. INFORMED THAT PT HAD PTT OF GREATER THAN 250 AT 2300. RECEIVED ORDERS TO HOLD LOVENOX AT THIS TIME.
[2020-09-24 01:41] LABS: Basophils # 0.1 10^3/uL (0.0-0.1); Basophils % 0.6 %; Eosinophils # 0.1 10^3/uL (0.0-0.8); Eosinophils % 0.7 %; Hemoglobin 15.7 g/dL (11.7-16.6); Lymphocytes # 2.2 10^3/uL (0.8-4.8); Lymphocytes % 20.9 %; Mean Corpuscular HGB Conc 34.9 g/dL (30.0-36.0); Mean Corpuscular Hemoglobin 32.3 pg (28.0-34.0); Mean Corpuscular Volume 92.6 fL (80-94); Monocytes # 1.1 10^3/uL (0.2-0.9); Monocytes % 10.3 %; Neutrophils # 6.98 10^3/uL (1.8-7.7); Neutrophils % 67.1 %; Nucleated Red Blood Cells % 0 %; Platelet Count 237 10^3/cmm (130-400); Red Blood Count 4.86 10^6/uL (4.1-5.3); Red Cell Distribution Width 12.5 % (12.1-15.1); White Blood Count 10.4 10^3/uL (4.0-10.0)
[2020-09-24 02:00] LABS: Alanine Aminotransferase 30 U/L (0-41); Albumin Level 3.5 g/dL (3.5-5.2); Alkaline Phosphatase 91 IU/L (40-130); Anion Gap 10.5 (5-19); Aspartate Amino Transferase 68 U/L (0-40); Blood Urea Nitrogen 8 mg/dL (6-20); Calcium 8.3 mg/dL (8.5-10.5); Carbon Dioxide 26 mmol/L (22-29); Chloride 103 mmol/L (98-107); Globulin 2.9 g/dL (1.3-4.6); Glomerular Filtration Rate 89.3 mL/min (90-130); Glucose 92 mg/dL (65-115); Magnesium 2.1 mg/dL (1.7-2.3); Osmolality Calculated 280 mOsm/kg (285-295); Phosphorus 2.7 mg/dL (2.5-4.5); Potassium 3.5 mmol/L (3.5-5.1); Sodium 136 mmol/L (136-145); Total Bilirubin 0.6 mg/dL (0.15-1.2); Total Protein 6.4 g/dL (6.6-8.7)
[2020-09-24 02:10] LABS: Partial Thromboplastin Time 52.1 SECONDS (23.9-36.7)
[2020-09-24 03:57] LABS: Partial Thromboplastin Time 34.5 SECONDS (23.9-36.7)
--- NOTE | 2020-09-24 06:33 | PC.NURSE ---
Sheath Removal 0520 - Pt prepared for femoral sheath removal. Pt positioned and educated prior to procedure. VSS and charted through out. Strong right leg dorsal pedis and popliteal pulse palpated. 0534 - Pressure bag disconnected from catheter, 10 cc blood aspirated. No hematoma or bruising observed and sheath insertion site. Sheath removed and pressure held. VSS. B/P Q5M 0554 - Pressure released from cath site. No hematoma or bruising observed. Pt educated on self care and when to notify nursing staff for signs/symptoms. Insertion site left open for approximately 5 minutes to observe before dressing applied. Site cleaned with chlorhexidine, 2x2 gauze and tegaderm applied. VSS Primary nurse notified on completion of procedure.
--- NOTE | 2020-09-24 06:42 | PC.NURSE ---
NURSE NOTE: RIGHT GROIN SITE CHECKED AT THIS TIME AND EVERY 10 TO 15 MINUTES SINCE SHEATH PULLED PER NEWCOMER HOSTESS AT 0554 THIS AM. DRESSING CLEAN DRY AND INTACT WITH NO DRAINAGE NOTED. PATIENT REMINDED TO STAY FLAT AND TO CALL FOR ASSISSTANCE. ALL VS AND ASSESSMENTS CHARTED. NO DISTRESS NOTED AT THIS TIME.
[2020-09-24] MEDS: lisinopril 5 mg Tablet PO (08:26)
[2020-09-24] MEDS: aspirin 81 mg EC Tablet PO (08:26)
[2020-09-24] MEDS: clopidogrel 75 mg Tablet PO (08:26)
[2020-09-24] MEDS: famotidine 20 mg Tablet PO (08:26)
[2020-09-24] MEDS: metoprolol succinate ER (24 HR) 25 mg Tablet 12.5 MG PO (08:26)
--- NOTE | 2020-09-24 09:15 | PC.CHAP ---
Pastoral Care Encounter/Spiritual Assessment Type of Contact [] Declined watch assembler visit [] Patient/Family/Request visit [] Outpatient visit [] Follow-up visit [] Physician referral [] Code/Alert [x] Routine visit [] Staff referral [] Actively dying [] Patient sleeping [] Family support [] [] Out of room [] Palliative care [] [] Receiving care in room [] Pre-surgical visit [] Trauma [] Long length of stay [] ICU visit [x] Other: patient on phone Relational/Emotional Strength [] Patient feels connected with others/family/visitors/staff [] Distress [] Loneliness/isolation [] Abandonment Spirituality of Patient [] Person of Kath [] Attends Restorationism of their Kath [] Believes in Prayer [] Reads Bible or Synagogue materials [] There are Spiritual issues to be addressed General Education Instructor Interventions [x] Prayer [] Active listening [] Non-anxious presence [] Spiritual/emotional support [] Crisis/trauma care [] Spiritual counseling [] Bereavement support [] Provided bereavement packet [] Provided Bible/devotional materials [] Provided toy/stuffed animal, coloring book to patient or family member [] Provided Communion [] Anointing/[place] [] Salvation [x] Completed spiritual assessment [] Other: Impact on Illness or Injury [] Angry [] Fearful [] Anxious [] Often cries [] Exhaustion [] Unable to work [] Unable to attend religious [] Unable to walk/stand [] Unable to read [] Unable to drive [] Unable to eat/drink [] Unable to sleep [] Unable to be with family [] Patient intubated [] Other: Summary Time spent with patient
--- NOTE | 2020-09-24 12:42 | P.DS_ITS ---
Discharge Providers Date of Admission: 09/23/20 07:22 Date of Discharge: September 24, 2020 Attending Provider at Admission: Beny Landin MD Attending Provider at Discharge: Chris Martin MD Diagnoses at Discharge Discharge Diagnosis (1) Non-ST elevation KS (NSTEMI): Status: Acute (2) GERD (gastroesophageal reflux disease): Status: Acute Qualifiers: Esophagitis presence: with esophagitis Esophagitis bleeding: without hemorrhage Qualified Code(s): K21.00 - Gastro-esophageal reflux disease with esophagitis, without bleeding (3) Benign essential hypertension with target blood pressure below 140/90: Status: Acute (4) Dyslipidemia: Status: Acute Reason for Visit Reason for Visit: chest pain, poss gastritis, 03/27 pain Hospital Course Hospital Course 49-year-old gentleman who was admitted for chief complaint of chest discomfort, NSTEMI was diagnosed at the time of admission, patient underwent coronary angiogram next day 09/23/2020, drug-eluting stent was placed in OM1 and 50 to 60% stenosis was seen in RCA. Medical management recommended for RCA atherosclerotic plaque. After the procedure patient did well femoral artery was accessed for angiogram. Femoral sheath was removed without any complications. Patient tolerated the procedure very well no active chest pain. He will be discharged on aspirin, Plavix, atorvastatin and low-dose metoprolol, low-dose Toprol was recommended because of bradycardia noted on EKG. He will follow up with cardiology. Extensive counseling was done to quit smoking. Physical Exam Narrative: EXAM NARRATIVE: Very pleasant was laying supine S1, S2 no sinus arrhythmia No acute respiratory distress No abdominal discomfort Awake alert oriented x3 GCS 15 No neurological deficit No joint Right femoral arterial site has dressing without any active drainage, Discharge Data Data Completed and Pending: Completed Studies During Hospitalization Category Date Time Status XR chest 1V angi ble [id number] Stat Exams 09/22/20 23:25 Completed CV echo complete* [id number] Routine Ultrasound 09/23/20 01:37 Completed Pending at discharge Category Date Time Status RAYON CONER request for service Routin e Exams 09/23/20 18:00 Taken Complete Blood Co unt w/Auto AM LABS Lab 09/25/20 04:00 Ordered Complete Blood Co unt w/Auto AM LABS Lab 09/26/20 04:00 Ordered Comprehensive Met abolic Panel AM LA BS Lab 09/25/20 04:00 Ordered Comprehensive Met abolic Panel AM LA BS Lab 09/26/20 04:00 Ordered Magnesium AM LABS Lab 09/25/20 04:00 Ordered Magnesium AM LABS Lab 09/26/20 04:00 Ordered Phosphorus AM LAB S Lab 09/25/20 04:00 Ordered Phosphorus AM LAB S Lab 09/26/20 04:00 Ordered Labs from last 24 hours 09/24/20 09/24/20 09/24/20 03:25 01:31 01:31 WBC RBC Hgb Hct MCV MCH MCHC RDW Plt Count MPV Neut % (Auto) Lymph % (Auto) Norman % (Auto) Eos % (Auto) Baso % (Auto) Neut # (Auto) Lymph # (Auto) Norman # (Auto) Eos # (Auto) Baso # (Auto) Nucleated RBC % (a uto) Nucleated RBCs # APTT 34.5 52.1 H D Sodium 136 Potassium 3.5 Chloride 103 Carbon Dioxide 26 Anion Gap 10.5 BUN 8 Creatinine 0.9 GFR Calculation 89.3 L Glucose 92 Calculated Osmolal ity 280 L Calcium 8.3 L Phosphorus 2.7 Magnesium 2.1 Total Bilirubin 0.6 AST 68 H ALT 30 Alkaline Phosphata se 91 Total Protein 6.4 L Albumin 3.5 Globulin 2.9 09/24/20 09/23/20 01:31 22:31 WBC 10.4 H RBC 4.86 Hgb 15.7 Hct 45.0 MCV 92.6 MCH 32.3 MCHC 34.9 RDW 12.5 Plt Count 237 MPV 9.0 Neut % (Auto) 67.1 Lymph % (Auto) 20.9 Norman % (Auto) 10.3 Eos % (Auto) 0.7 Baso % (Auto) 0.6 Neut # (Auto) 6.98 Lymph # (Auto) 2.2 Norman # (Auto) 1.1 H Eos # (Auto) 0.1 Baso # (Auto) 0.1 Nucleated RBC % (a uto) 0 Nucleated RBCs # 0.0 APTT > 250.0 H* Sodium Potassium Chloride Carbon Dioxide Anion Gap BUN Creatinine GFR Calculation Glucose Calculated Osmolal ity Calcium Phosphorus Magnesium Total Bilirubin AST ALT Alkaline Phosphata se Total Protein Albumin Globulin Vitals: Last Vital Signs Temp 98.4 F 09/24/20 12:00 Pulse 84 09/24/20 12:00 Resp 18 09/24/20 12:00 BP 118/76 09/24/20 12:00 Pulse Ox 94 09/24/20 12:00 Discharge Plan Discharge Patient Disposition: Home Condition: Stable Prescriptions: New aspirin 81 mg Tablet,Delayed Release (Dr/Ec) 81 mg PO DAILY 30 Days Qty: 30 RF: 3 lisinopril 5 mg Tablet 5 mg PO DAILY 30 Days Qty: 30 RF: 3 clopidogrel 75 mg Tablet 75 mg PO DAILY 30 Days Qty: 30 RF: 3 metoprolol succinate 25 mg Tablet Extended Release 24 Hr 12.5 mg PO DAILY 30 Days Qty: 30 RF: 3 atorvastatin 40 mg Tablet 80 mg PO BEDTIME 30 Days Qty: 30 RF: 3 Discontinued Zoloft 100 mg Tablet 100 mg PO BEDTIME RF: 0 metoprolol tartrate 25 mg Tablet 25 mg PO BID RF: 0 Discharge Orders: Discharge Order (Routine); Ordered 09/24/20 Ordered By: Chris Martin Referrals: Edmar Hamm MD [Staff Physician] - Lisbeth Wynn MD [Family Provider] - Chris Martin MD [Hospitalist] - Discharge Diet: Advance as tolerated and Cardiac Discharge Activity: Resume usual activity Patient Instructions: Coronary Angioplasty (DC), Left Heart Catheterization (DC) Activity Restrictions/Additional Instructions: You will take aspirin and Plavix for 3 to 6 months and will follow with cardiology Please be aware lisinopril for blood pressure has been added which is good for heart as well, You will take metoprolol succinate which can reduce heart rate if your heart rate is less than 60 please skip the dose You will be on atorvastatin 80 mg for cholesterol and atherosclerotic plaque of coronary vessels Because of any recurrence of chest pain please come to the ER for further evaluation, follow-up with cardiology Discharge Attestations Time Spent in Discharge Care*: less than 30 min Quality Metrics Clinical Quality Measures During this hospital stay, did patient experience: AMI Clinical Trial Participant: No Contraindication to aspirin (AMI): Aspirin given Contraindication to statin: Statin prescribed Contraindication to PCI: PCI performed Contraindication to Fibrinolytics: Other Coding Level of Care Code Acute Chemical Laboratory Technician for [facility] Fwd Diagnoses Non-ST elevation KS (NSTEMI) I21.4 GERD (gastroesophageal reflux disease) K21.00 Esophagitis presence: with esophagitis Esophagitis bleeding: without hemorrhage Benign essential hypertension with target blood pressure below 140/90 I10 Dyslipidemia E78.5
--- NOTE | 2020-09-24 13:10 | PC.NURSE ---
PATIENT AMBULATED AT NOON. NO ISSUES, VITAL SIGNS STABLE.
--- NOTE | 2020-09-24 14:02 | P.PN_ITS ---
Subjective Subjective: Interval history: Patient underwent a cardiac catheterization, followed by PCI of the obtuse marginal artery and FFR of the right coronary artery lesion. He tolerated the procedure well and there were no complication. Because of the tortuosity in the subclavian artery, he underwent intervention through the right femoral artery. The arterial sheath was discontinued early this morning. Currently he has no hematoma bleeding at the arterial puncture sites. Medications: Reviewed: Yes Medication Review Details: Current Medications Acetaminophen (Acetaminophen 325 Mg Tablet) 650 mg PO Q6H PRN PRN Reason: Mild/Mod Pain Or Temp >/= 101 Last Admin: 09/23/20 14:12 Dose: 650 mg Documented by: Al Hydrox/Mg Hydrox/Simethicone (Pfyz-Gri-Gdjjszcpz-Kannan 30 Ml Udc) 30 ml PO Q15M PRN PRN Reason: INDIGESTION Alprazolam (Alprazolam 0.25 Mg Tablet) 0.25 mg PO TID PRN PRN Reason: ANXIETY Aspirin (Aspirin 81 Mg Ec Tablet) 81 mg PO DAILY [facility] Last Admin: 09/24/20 08:26 Dose: 81 mg Documented by: Atorvastatin Calcium (Atorvastatin 40 Mg Tablet) 80 mg PO BEDTIME [facility] Atropine Sulfate (Atropine 1 Mg/Ml Sdv 1 Ml) 0.5 mg IVP PRN PRN PRN Reason: Symptomatic bradycardia Clopidogrel Bisulfate (Clopidogrel 75 Mg Tablet) 75 mg PO DAILY [facility] Last Admin: 09/24/20 08:26 Dose: 75 mg Documented by: Enoxaparin Sodium (Enoxaparin 100 Mg/Ml Syringe) 100 mg 1 mg/kg (100 mg) SUBCUT Q12H [facility] Last Admin: 09/24/20 00:49 Dose: Not Given Documented by: Famotidine (Famotidine 20 Mg Tablet) 20 mg PO BID [facility] Last Admin: 09/24/20 08:26 Dose: 20 mg Documented by: Lisinopril (Lisinopril 5 Mg Tablet) 5 mg PO DAILY [facility] Last Admin: 09/24/20 08:26 Dose: 5 mg Documented by: Magnesium Hydroxide (Magnesium Hydroxide 30 Ml Udc) 30 ml PO DAILY PRN PRN Reason: CONSTIPATION Metoprolol Succinate (Metoprolol Succinate Er (24 Hr) 25 Mg Tablet) 12.5 mg PO DAILY [facility] Last Admin: 09/24/20 08:26 Dose: 12.5 mg Documented by: Morphine Sulfate (Morphine 4 Mg/Ml Sdv 1 Ml) 2 mg IVP Q4H PRN PRN Reason: SEVERE PAIN Naloxone HCl (Naloxone 0.4 Mg/Ml Sdv) 0.1 mg IVP Q2M PRN PRN Reason: RESPIRATORY RATE < 8/MIN Nitroglycerin (Nitroglycerin 0.4 Mg Sublingual Tablet) 0.4 mg SUBLINGUAL Q5M PRN PRN Reason: CHEST PAIN Temazepam (Temazepam 15 Mg Capsule) 15 mg PO BEDTIME PRN PRN Reason: INSOMNIA Vitals/I&O/Wt Last Vital Signs Temp 98.4 F 09/24/20 12:00 Pulse 84 09/24/20 12:00 Resp 18 09/24/20 12:00 BP 118/76 09/24/20 12:00 Pulse Ox 94 09/24/20 12:00 09/23/20 09/24/20 09/24/20 22:59 06:59 14:59 Intake Total 120 / 1017.5 1100 / 2117.5 1720 / 1720 Output Total 200 / 1000 450 / 1450 Balance -80 / 17.5 650 / 667.5 1720 / 1720 Weight last 48 hrs Weight 227 lb 4.8 oz Weight 225 lb Physical Exam Narrative: EXAM NARRATIVE: GENERAL: The patient is alert and oriented times three. Not in any acute distress. HEENT: No significant pallor, icterus or lymphadenopathy. Oral cavity: There are no mucous membrane lesions. NECK: Trachea appears to be central. No masses noted. No JVD or thyromegaly appreciated. No carotid bruit. RESPIRATORY: Chest is symmetrical. No intercostals muscle retraction or any accessory muscle activation. There is no chest wall tenderness. Breath sounds are heard bilaterally. No rales or rhonchi heard. No evidence of any consolidation. BREASTS: Deferred. HEART: The PMI could not be palpated. No other palpable precordial events. First second heart sounds normal . No S3 or S4. No significant murmurs. ABDOMEN: No vessel pulsations or distention. No tenderness. No organomegaly appreciated. No abdominal bruit. Bowel sounds are normally heard. : Deferred. RECTAL: Deferred. LYMPHATIC: No lymphadenopathy noted in the neck or groin. EXTREMITIES: The right radial and femoral pulses are palpated in good volume and amplitude. No hematoma bleeding. MUSCULOSKELETAL: No acute joint deformities or swelling. SKIN: There are no significant scars or skin rash noted. NEUROPSYCHIATRIC: The patient is alert and oriented x3. Appears to be in a good mood. The higher functions are grossly within normal limits. No tremors or rigidity noted. Const: COMMON NORMALS: alert Resp: COMMON NORMALS: clear to auscultation bilaterally AUSCULTATION: clear to auscultation bilaterally Neuro: SENSORIUM/ORIENTATION: Yes alert Data : 09/24/20 01:31 09/24/20 01:31 A&P Assessment and plan (1) Non-ST elevation [place] (NSTEMI): Patient status post PCI of the obtuse marginal 1 artery lesion. He seems to be stable. Status: Acute (2) GERD (gastroesophageal reflux disease): Patient may be treated with an H2 genny. Status: Acute Qualifiers: Esophagitis presence: with esophagitis Esophagitis bleeding: without hemorrhage Qualified Code(s): K21.00 - Gastro-esophageal reflux disease with esophagitis, without bleeding (3) Benign essential hypertension with target blood pressure below 140/90: Currently normotensive. Continue on the current medications. Status: Acute (4) Dyslipidemia: Continue on the current medications. Status: Acute Additional A&P Information If the patient continues to remain stable, may be discharged home from a cardiac standpoint. He need to be seen in the [facility] in 1 week to be seen by the nurse practitioner. I may see him in the office in 3 to 4 weeks. Continue the Plavix, aspirin, beta-genny, Lipitor and lisinopril. Addendum The echocardiogram revealeda mild hypokinesia of the basal inferior wall segment. Normal overall LV ejection fraction. In view of the patient's presenting symptoms and the other clinical features, in order to further evaluate his coronary status, a cardiac catheterization would be appropriate. The risk of bleeding, hematoma, vascular injury, myocardial infarction, CVA, renal failure and other concomitant complications were explained in detail. Patient understood this well and consented to proceed. We may go ahead and schedule this procedure as early as possible in the hospital. 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
== END 2020-09-24 15:12 | disposition home or self-care (01) | DRG 247 ==
LOC: ER 09-23 00:50 → CSU 09-23 07:23
PROVIDERS: Internal Medicine Cardiovascular Disease; Admitting Provider Family Medicine; Emergency Provider Emergency Medicine; Family Provider Family Medicine; Visit Provider Internal Medicine
PROC: 027034Z Dilation of Coronary Artery, One Artery with Drug-eluting Intraluminal Device, Percutaneous Approach (ICD-10-PCS; principal; 2020-09-23 18:00)
DX: I21.4 Non-ST elevation (NSTEMI) myocardial infarction (principal); K21.00 Gastro-esophageal reflux disease with esophagitis, without bleeding; I10 Essential (primary) hypertension; F17.210 Nicotine dependence, cigarettes, uncomplicated; E78.5 Hyperlipidemia, unspecified
CPT/HCPCS: 36415; 71045; 80053; 80061; 83036; 83690; 83721; 83735; 83880; 84100; 84443; 84484; 85025; 85347; 85730; 93005; 93306; 93452; 93571; 96372; 99285; C1725; C1760; C1769; C1874; C1887; C1894; C9600; J0153; J1644; J1650; J2060; J2250; J2405; J3010; J3490; J7030; Q0163; Q9967

== ENCOUNTER → 2020-10-02 14:29 | Outpatient (BNVA) | payer SELFPAY | PROVIDERS: Family Provider Family Medicine; Visit Provider Nurse Practitioner Family | DX: I25.10 Atherosclerotic heart disease of native coronary artery without angina pectoris (principal) | CPT/HCPCS: 80048 ==

== ENCOUNTER 2020-10-04 20:15 | Emergency (ER) | payer SELFPAY ==
--- NOTE | 2020-10-04 20:18 | XRR_ITS ---
PROCEDURE INFORMATION: Exam: XR Chest Exam date and time: 10/04/2020 8:20 PM Age: 49 years old Clinical indication: Chest pain; Additional info: Cp TECHNIQUE: Imaging protocol: XR of the chest Views: 1 view. COMPARISON: CR XR chest 1V portable [id number] 09/22/2020 11:23 PM FINDINGS: Lungs: No consolidation. Pleural spaces: Unremarkable. No pleural effusion. No pneumothorax. Heart/Mediastinum: No cardiomegaly. Bones/joints: No acute fracture. XR/XR chest 1V portable [id number] IMPRESSION: No acute findings.
--- NOTE | 2020-10-04 20:18 | ECG_ITS ---
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 Measurements Intervals [place] Rate: 104 P: 43 NV: 142 QRS: 14 QRSD: 98 T: 33 QT: 334 QTc: 441 Interpretive Statements SINUS TACHYCARDIA INFERIOR MYOCARDIAL INFARCTION , PROBABLY OLD [40+ ms Q WAVE AND/OR ST/T ABNORMALITY IN II/aVF] Compared to ECG 09/23/2020 06:25:28 Myocardial infarct finding now present Sinus rhythm no longer present T-wave abnormality no longer present Electronically Signed On 10-05-2020 20:21:10 CDT by Mackenzie Wallace M.D. [id number]
[2020-10-04 20:21] VITALS: BP 144/99; PULSE 98; RESP 16; TEMP 36.9; O2SAT 98; BMI 29.2
--- NOTE | 2020-10-04 20:29 | ED_ITS ---
HPI - Arrhythmia/Palpitations General: Chief Complaint: Arrhythmia/Palpitations Stated Complaint: HEART FLUTTERS/STENT PLACEMENT 09.30.20 Time Seen by Provider: 10/04/20 20:19 Source: patient Mode of arrival: ambulatory Limitations: no limitations History of Present Illness: HPI narrative: 49-year-old male who had a stent placed 1 week ago. He states today started to have some palpitations and started feeling quite anxious. He denies having any chest pain states with the fluttering feeling he had earlier today wanted to have his heart checked out. He denies any shortness of breath. Denies any worsening improving factors. Denies any vomiting or diarrhea. Associated symptoms: Deny nausea or vomiting Review of Systems Const: Denies: fever(s), chills, body aches or change in appetite Eyes: Denies: blurry vision or eye discomfort ENMT: Denies: throat pain or dental pain Card: Reports: palpitations Resp: Denies: dyspnea GI: Denies: abdominal pain, nausea, vomiting or diarrhea : Denies: dysuria Musc: Denies: neck pain or back pain Skin/Breast: Denies: rash Neuro: Denies: headache(s) Psych: Denies: depression Rene/Lymph: Denies: easy bruising All/Imm: Denies: urticaria PFSH ED PFSH: Medical History (Updated 10/04/20 @ 23:47 by Tiffani Batres MD) Atherosclerosis of coronary artery Benign essential hypertension with target blood pressure below 140/90 Dyslipidemia GERD (gastroesophageal reflux disease) Hypertension Nicotine dependence Surgical History No pertinent past surgical history Family History Father CAD (coronary artery disease), Onset Age: 40 Brother Renal cell carcinoma Social History Smoking and tobacco status: current every day smoker Alcohol intake: current Alcohol intake frequency: few times a week Physical Exam Const: COMMON NORMALS: no acute distress, patient oriented x3 and healthy appearing HENMT: COMMON NORMALS: normocephalic and atraumatic HEAD & SCALP: normocephalic and atraumatic Eye: COMMON NORMALS: Equal, round and reactive pupils present and EOMs intact bilaterally PUPIL: Yes Equal, round and reactive pupils present Neck/C-Spine: COMMON NORMALS: full ROM and supple Chest: COMMONS NORMALS: normal inspection of the chest and normal palpation of entire chest wall Resp: COMMON NORMALS: normal respiratory effort, No retractions, No use of accessory muscles and clear to auscultation bilaterally AUSCULTATION: clear to auscultation bilaterally Cardio: COMMON NORMALS: regular rate, regular rhythm and No murmurs present (Cardio) RATE: regular rate RHYTHM: regular rhythm GI: COMMON NORMALS: Normal to inspection, nondistended, normoactive bowel sounds present, Soft to palpation, non-tender and no masses PALPATION: Yes Soft to palpation Extremity: COMMON NORMALS: normal to inspection and full ROM Neuro: COMMON NORMALS: patient oriented x3, moves all extremities and no focal motor deficits Psych: COMMON NORMALS: mental status grossly normal, Normal thought process present and cooperative THOUGHT PROCESS: Normal thought process present Skin: COMMON NORMALS: no rashes or lesions noted and no wounds GENERAL SKIN EXAM: no rashes or lesions noted Course Vital Signs: Vital signs: Vital Signs Temperature 98.4 F 10/04/20 20:21 Pulse Rate 68 10/04/20 22:20 Respiratory Rate 18 10/04/20 22:20 Blood Pressure 107/76 10/04/20 22:20 Pulse Oximetry 96 10/04/20 22:20 MDM - Arrhythmia/Palpitations MDM Narrative: Medical decision making narrative: Patient presents with palpitations with no pain. His initial repeat troponin here are unchanged. EKGs here are normal as well. He feels improved after Ativan. We will place him on Vistaril at home and he is to follow-up his PCP and return if worsening. He understands agrees to plan. Lab Data: Labs: Lab Results 10/04/20 10/04/20 10/04/20 Range/Units 20:27 20:27 20:27 WBC 8.9 (4.0-10.0) 10^3/ uL RBC 5.14 (4.1-5.3) 10^6/u L Hgb 16.3 (11.7-16.6) g/dL Hct 47.2 (42.0-52.0) % MCV 91.8 (80-94) fL MCH 31.7 (28.0-34.0) pg MCHC 34.5 (30.0-36.0) g/dL RDW 11.9 L (12.1-15.1) % Plt Count 408 H (130-400) 10^3/c mm MPV 9.4 (7.4-10.4) fL Neut % (Auto) 65.0 % Lymph % (Auto) 23.8 % [place] % (Auto) 7.3 % Eos % (Auto) 2.4 % Baso % (Auto) 0.8 % Neut # (Auto) 5.78 (1.8-7.7) 10^3/u L Lymph # (Auto) 2.1 (0.8-4.8) 10^3/u L [place] # (Auto) 0.7 (0.2-0.9) 10^3/u L Eos # (Auto) 0.2 (0.0-0.8) 10^3/u L Baso # (Auto) 0.1 (0.0-0.1) 10^3/u L Nucleated RBC % (a uto) 0 % Nucleated RBCs # 0.0 /100WBC Sodium 137 (136-145) mmol/L Potassium 4.0 (3.5-5.1) mmol/L Chloride 99 (98-107) mmol/L Carbon Dioxide 28 (22-29) mmol/L Anion Gap 14.0 (5-19) BUN 13 (6-20) mg/dL Creatinine 0.9 (0.7-1.2) mg/dL GFR Calculation 89.3 L (90-130) mL/min Glucose 114 (65-115) mg/dL Calculated Osmolal ity 285 (285-295) mOsm/k g Calcium 9.6 (8.5-10.5) mg/dL Total Bilirubin 0.4 (0.15-1.2) mg/dL AST 20 (0-40) U/L ALT 29 (0-41) U/L Alkaline Phosphata se 109 (40-130) IU/L Troponin T Baselin e 18 H (0-15) ng/L Delta Troponin T (0-10) ABS# Total Protein 7.3 (6.6-8.7) g/dL Albumin 4.4 (3.5-5.2) g/dL Globulin 2.9 (1.3-4.6) g/dL 10/04/20 Range/Units 22:50 WBC (4.0-10.0) 10^3/ uL RBC (4.1-5.3) 10^6/u L Hgb (11.7-16.6) g/dL Hct (42.0-52.0) % MCV (80-94) fL MCH (28.0-34.0) pg MCHC (30.0-36.0) g/dL RDW (12.1-15.1) % Plt Count (130-400) 10^3/c mm MPV (7.4-10.4) fL Neut % (Auto) % Lymph % (Auto) % [place] % (Auto) % Eos % (Auto) % Baso % (Auto) % Neut # (Auto) (1.8-7.7) 10^3/u L Lymph # (Auto) (0.8-4.8) 10^3/u L [place] # (Auto) (0.2-0.9) 10^3/u L Eos # (Auto) (0.0-0.8) 10^3/u L Baso # (Auto) (0.0-0.1) 10^3/u L Nucleated RBC % (a uto) % Nucleated RBCs # /100WBC Sodium (136-145) mmol/L Potassium (3.5-5.1) mmol/L Chloride (98-107) mmol/L Carbon Dioxide (22-29) mmol/L Anion Gap (5-19) BUN (6-20) mg/dL Creatinine (0.7-1.2) mg/dL GFR Calculation (90-130) mL/min Glucose (65-115) mg/dL Calculated Osmolal ity (285-295) mOsm/k g Calcium (8.5-10.5) mg/dL Total Bilirubin (0.15-1.2) mg/dL AST (0-40) U/L ALT (0-41) U/L Alkaline Phosphata se (40-130) IU/L Troponin T Baselin e (0-15) ng/L Delta Troponin T 0.09 (0-10) ABS# Total Protein (6.6-8.7) g/dL Albumin (3.5-5.2) g/dL Globulin (1.3-4.6) g/dL Imaging Data^: CXR: Attestation: I personally reviewed and interpreted this imaging study as follows: My impression: No acute abnormality EKG Data^: EKG 1: Attestation: I personally reviewed and interpreted this EKG as follows: EKG interpretation date: 10/04/20 EKG interpretation time: 22:13 Interpretation: nsr hr [address] or t wave abnormalities qrs 93 qtc 399 EKG 2: Attestation: I personally reviewed and interpreted this EKG as follows: EKG interpretation date: 10/04/20 EKG interpretation time: 22:52 Interpretation: nsr hr [address] or t wave abnormalities qrs 95 qtc 401 Discharge Plan Discharge Patient Disposition: Home Clinical Impression: Palpitations Condition: Stable Prescriptions: New Vistaril 25 mg capsule 25 mg PO TID PRN (Reason: anxiety) Qty: 14 RF: 0 No Action Zoloft 100 mg Tablet 100 mg PO BEDTIME RF: 0 aspirin 81 mg Tablet,Delayed Release (Dr/Ec) 81 mg PO DAILY 30 Days Qty: 30 RF: 3 atorvastatin 40 mg Tablet 80 mg PO BEDTIME 30 Days Qty: 30 RF: 3 clopidogrel 75 mg Tablet 75 mg PO DAILY 30 Days Qty: 30 RF: 3 lisinopril 5 mg Tablet 5 mg PO DAILY 30 Days Qty: 30 RF: 3 metoprolol succinate 25 mg Tablet Extended Release 24 Hr 12.5 mg PO DAILY 30 Days Qty: 30 RF: 3 Discharge Orders: Discharge ED (Routine); Ordered 10/04/20 Ordered By: Tiffani Batres Discharge Diet: Advance as tolerated Discharge Activity: Resume usual activity Patient Instructions: Palpitations (ED) Coding Level of Care Code ED Service Desk Associate for Chg Fwd Exam Comprehensive
[2020-10-04] MEDS: LORazepam 2 mg/mL INJ 1 mL 1 MG IVP (20:42)
[2020-10-04 20:44] LABS: Basophils # 0.1 10^3/uL (0.0-0.1); Basophils % 0.8 %; Eosinophils # 0.2 10^3/uL (0.0-0.8); Eosinophils % 2.4 %; Hematocrit 47.2 % (42.0-52.0); Hemoglobin 16.3 g/dL (11.7-16.6); Lymphocytes # 2.1 10^3/uL (0.8-4.8); Lymphocytes % 23.8 %; Mean Corpuscular HGB Conc 34.5 g/dL (30.0-36.0); Mean Corpuscular Hemoglobin 31.7 pg (28.0-34.0); Mean Corpuscular Volume 91.8 fL (80-94); Mean Platelet Volume 9.4 fL (7.4-10.4); Monocytes # 0.7 10^3/uL (0.2-0.9); Monocytes % 7.3 %; Neutrophils # 5.78 10^3/uL (1.8-7.7); Nucleated Red Blood Cells % 0 %; Platelet Count 408 10^3/cmm (130-400); Red Blood Count 5.14 10^6/uL (4.1-5.3); Red Cell Distribution Width 11.9 % (12.1-15.1); White Blood Count 8.9 10^3/uL (4.0-10.0)
[2020-10-04 21:02] LABS: Alanine Aminotransferase 29 U/L (0-41); Albumin Level 4.4 g/dL (3.5-5.2); Alkaline Phosphatase 109 IU/L (40-130); Aspartate Amino Transferase 20 U/L (0-40); Blood Urea Nitrogen 13 mg/dL (6-20); Calcium 9.6 mg/dL (8.5-10.5); Carbon Dioxide 28 mmol/L (22-29); Chloride 99 mmol/L (98-107); Globulin 2.9 g/dL (1.3-4.6); Glomerular Filtration Rate 89.3 mL/min (90-130); Glucose 114 mg/dL (65-115); Osmolality Calculated 285 mOsm/kg (285-295); Sodium 137 mmol/L (136-145); Total Bilirubin 0.4 mg/dL (0.15-1.2); Total Protein 7.3 g/dL (6.6-8.7)
[2020-10-04 21:04] LABS: Troponin(5th) Baseline 18 ng/L (0-15)
--- NOTE | 2020-10-04 22:18 | ECG_ITS ---
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 Measurements Intervals [place] Rate: 82 P: 50 CT: 151 QRS: 19 QRSD: 93 T: 139 QT: 360 QTc: 423 Interpretive Statements SINUS RHYTHM NONSPECIFIC T-WAVE ABNORMALITY Compared to ECG 10/04/2020 20:24:19 T-wave abnormality now present Sinus tachycardia no longer present Myocardial infarct finding no longer present Electronically Signed On 10-05-2020 20:45:16 CDT by Mackenzie Wallace M.D. [id number] f
[2020-10-04 22:20] VITALS: BP 107/76; PULSE 68; RESP 18; O2SAT 96
[2020-10-04 23:36] LABS: Troponin 5 2HR 18.09 ng/L (0-15); Troponin 5 2HR Delta 0.09 ABS# (0-10)
[2020-10-05 00:08] VITALS: BP 112/77; PULSE 84; RESP 18; O2SAT 96
== END 2020-10-05 00:10 | disposition home or self-care (01) ==
PROVIDERS: Emergency Provider Emergency Medicine
DX: R00.2 Palpitations (principal); Z79.82 Long term (current) use of aspirin; Z79.02 Long term (current) use of antithrombotics/antiplatelets; I25.10 Atherosclerotic heart disease of native coronary artery without angina pectoris; I10 Essential (primary) hypertension; E78.5 Hyperlipidemia, unspecified; F17.210 Nicotine dependence, cigarettes, uncomplicated
CPT/HCPCS: 36415; 71045; 80053; 84484; 85025; 93005; 96374; 99284; J2060

== ENCOUNTER → 2020-11-24 11:53 | Outpatient (BNVA) | payer SELFPAY | PROVIDERS: Visit Provider Nurse Practitioner | DX: J03.80 Acute tonsillitis due to other specified organisms (principal); B96.89 Other specified bacterial agents as the cause of diseases classified elsewhere | CPT/HCPCS: 87071; 87880 ==

== ENCOUNTER 2021-10-05 20:55 | Emergency (ER) | payer OTHER, SELFPAY ==
[2021-10-05 21:01] VITALS: BP 157/100; PULSE 87; RESP 18; TEMP 36.7; O2SAT 98; BMI 26.7
[2021-10-05 21:56] LABS: Add Urine Culture? Yes; Add Urine Microscopic? YES; Bacteria Urine TRACE /hpf; Bilirubin Urine Neg (Negative); Blood Urine 3+ (Negative); Glucose Urine UA Norm (Normal); Ketones Urine Negative (Negative); Leukocyte Esterase Urine Negative (Negative); Nitrate Urine Negative (Negative); Protein Urine Neg (Negative); RBC Urine >100 /hpf (0-2); Specific Gravity, Urine 1.005 (1.005-1.030); Squamous Epithelial Cell Urine 0-4 /hpf (0-5); Urine Appearance SL Hazy (CLEAR); Urine Color Yellow (Yellow); Urobilinogen Urine Norm (Negative); WBC Urine 0-4 /hpf (0-5); pH Urine 7 (5-7)
[2021-10-05 21:58] LABS: Sperm Urine 1+ /hpf
[2021-10-05 22:36] LABS: Basophils # 0.1 10^3/uL (0.0-0.1); Basophils % 0.6 %; Eosinophils # 0.1 10^3/uL (0.0-0.8); Eosinophils % 1.1 %; Hematocrit 47.8 % (42.0-52.0); Hemoglobin 16.6 g/dL (11.7-16.6); Lymphocytes # 2.1 10^3/uL (0.8-4.8); Lymphocytes % 16.8 %; Mean Corpuscular HGB Conc 34.7 g/dL (30.0-36.0); Mean Corpuscular Hemoglobin 31.9 pg (28.0-34.0); Mean Corpuscular Volume 91.7 fl (80-94); Mean Platelet Volume 8.7 fL (7.4-10.4); Monocytes # 0.9 10^3/uL (0.2-0.9); Monocytes % 7.4 %; Neutrophils # 9.08 10^3/uL (1.8-7.7); Neutrophils % 73.5 %; Nucleated Red Blood Cells % 0 %; Platelet Count 347 10^3/cmm (130-400); Red Blood Count 5.21 10^6/uL (4.1-5.3); Red Cell Distribution Width 12.3 % (12.1-15.1); White Blood Count 12.4 10^3/uL (4.0-10.0)
[2021-10-05 22:46] LABS: INR 0.85 (0.8-1.2)
[2021-10-05 22:56] LABS: Alanine Aminotransferase 41 U/L (0-41); Albumin Level 4.4 g/dL (3.5-5.2); Alkaline Phosphatase 94 IU/L (40-130); Anion Gap 14.9 (5-19); Aspartate Amino Transferase 24 U/L (0-40); Blood Urea Nitrogen 12 mg/dL (6-20); Calcium 9.6 mg/dL (8.5-10.5); Carbon Dioxide 26 mmol/L (22-29); Chloride 102 mmol/L (98-107); Globulin 2.7 g/dL (1.3-4.6); Glucose 111 mg/dL (65-115); Osmolality Calculated 286 mOsm/kg (285-295); Potassium 4.9 mmol/L (3.5-5.1); Sodium 138 mmol/L (136-145); Total Bilirubin 0.3 mg/dL (0.15-1.2); Total Protein 7.1 g/dL (6.6-8.7)
--- NOTE | 2021-10-05 23:35 | CTR_ITS ---
PROCEDURE INFORMATION: Exam: CT Abdomen And Pelvis Without Contrast Exam date and time: 10/05/2021 11:48 PM Age: 50 years old Clinical indication: Patient HX: Gross hematuria starting today. TECHNIQUE: Imaging protocol: Computed tomography of the abdomen and pelvis without contrast. Radiation optimization: All CT scans at this facility use at least one of these dose optimization techniques: automated exposure control; mA and/or kV adjustment per patient size (includes targeted exams where dose is matched to clinical indication); or iterative reconstruction. COMPARISON: CR XR chest 1V portable [id number] 10/04/2020 8:30 PM RADIATION DOSE METRICS: Total DLP (mGy-cm): 1449.72 FINDINGS: Liver: See Gallbladder and bile ducts finding. Gallbladder and bile ducts: 6.5 x 6.2 x 5.4 cm heterogeneous low-density slightly exophytic lobulated lesion in the medial segment left liver adjacent to the gallbladder consistent with benign or malignant liver tumor. Pancreas: Normal. No ductal dilation. Spleen: Normal. No splenomegaly. Adrenal glands: Normal. No mass. Kidneys and ureters: Normal. No hydronephrosis. Stomach and bowel: Moderate descending and/or sigmoid colon diverticulosis without diverticulitis. Appendix: Normal appendix. Intraperitoneal space: Unremarkable. No free air. No significant fluid collection. Vasculature: Calcification of the abdominal aorta and/or iliac arteries consistent with atherosclerotic vessel disease. One or more calcified pelvic phleboliths. Lymph nodes: Unremarkable. No enlarged lymph nodes. Urinary bladder: See Reproductive finding. Reproductive: 10 mm calcified prostate stone possibly in the prostatic urethra or urethral diverticulum. Bones/joints: Unremarkable. No acute fracture. Soft tissues: Unremarkable. CT/CT kidney stone [id number] IMPRESSION: 1. 6.5 x 6.2 x 5.4 cm heterogeneous low-density slightly exophytic lobulated lesion in the medial segment left liver adjacent to the gallbladder consistent with benign or malignant liver tumor. 2. 10 mm calcified prostate stone possibly in the prostatic urethra or urethral diverticulum.
--- NOTE | 2021-10-05 23:36 | W.ED.MALEGU ---
HPI - Male Genitourinary General: Chief complaint: General Medical Stated complaint: Blood in urine Time Seen by Provider: 10/05/21 23:06 History of Present Illness: Patient is a 50-year-old male comes to the ED with hematuria. Patient says tonight he was urinating and noticed there was some visible blood in his urine. Over the past couple days he reports having some mild itching discomfort every time he would urinate. Denies any fevers, chills, abdominal pain, flank pain, nausea/vomiting, diarrhea, constipation or blood in stool. Patient has been taking Augmentin for sinus infection for the past week. Patient does report being on Plavix and a daily baby aspirin. When providing urine sample here in the ED he said the initial stream had some blood in it but it cleared up and the rest of his urinary stream was clear with no blood. Denies any active bleeding or penile discharge or testicular pain. Associated symptoms: Reports dysuria (Discomfort-itchy feeling when urinating) and hematuria; Deny nausea or vomiting Review of Systems Const: Denies: fever(s), chills or fatigue Eyes: Denies: change in vision or eye discomfort ENMT: Denies: throat pain, odynophagia, nasal discharge or nasal congestion Card: Denies: chest pain, palpitations, edema, swelling of feet/ankles, dyspnea on exertion or orthopnea Resp: Denies: dyspnea, productive cough or non-productive cough GI: Denies: abdominal pain, nausea, vomiting, diarrhea, constipation or hematochezia : Reports: dysuria (Discomfort-itchy feeling when urinating) and hematuria; Denies: flank pain or difficulty urinating Musc: Denies: neck pain, back pain or extremity swelling Skin/Breast: Denies: rash or new lesions Neuro: Denies: headache(s), numbness in extremities or weakness in extremities PFS ED PFSH: Medical History Atherosclerosis of coronary artery Benign essential hypertension with target blood pressure below 140/90 Dyslipidemia GERD (gastroesophageal reflux disease) Hypertension Nicotine dependence Surgical History No pertinent past surgical history Family History Father CAD (coronary artery disease), Onset Age: 40 Brother Renal cell carcinoma Family/Other CAD (coronary artery disease) Cancer Diabetes Grandfather Dementia Denies family history of Clotting disorder Chronic kidney disease (CKD) Suicide Anesthesia complication Bleeding disorder Lung disease Stroke Social History Smoking and tobacco status: former smoker Alcohol intake: current Alcohol intake frequency: holidays/special occasions only Physical Exam Const: COMMON NORMALS: no acute distress, patient oriented x3, healthy appearing and alert GENERAL APPEARANCE: cooperative and comfortable HENMT: COMMON NORMALS: normocephalic HEAD & SCALP: normocephalic MOUTH: Normal oral and palatal mucosa present THROAT: posterior oropharynx normal and uvula midline Eye: COMMON NORMALS: Equal, round and reactive pupils present PUPIL: Yes Equal, round and reactive pupils present Neck/C-Spine: COMMON NORMALS: supple GENERAL: Yes normal visual inspection Resp: COMMON NORMALS: normal respiratory effort, No retractions, No use of accessory muscles and clear to auscultation bilaterally AUSCULTATION: clear to auscultation bilaterally Cardio: COMMON NORMALS: regular rate, regular rhythm, S1 normal heart sound present, S2 normal heart sound present, No gallops present (Cardio), No clicks present (Cardio), No murmurs present (Cardio) and Peripheral pulses 2+ throughout RATE: regular rate RHYTHM: regular rhythm HEART SOUNDS: S1 normal heart sound present and S2 normal heart sound present PERIPHERAL PULSES: Peripheral pulses 2+ throughout GI: COMMON NORMALS: Normal to inspection, nondistended, normoactive bowel sounds present, Soft to palpation, non-tender and no masses PALPATION: Yes Soft to palpation : COMMON NORMALS: Yes no CVA tenderness BLADDER/KIDNEY EXAM: Yes no CVA tenderness Back/Pelvis: COMMON NORMALS: no CVA tenderness Extremity: COMMON NORMALS: normal to inspection Neuro: COMMON NORMALS: patient oriented x3 and moves all extremities SENSORIUM/ORIENTATION: Yes alert Skin: GENERAL SKIN EXAM: dry skin Course Vital Signs: Vital signs: Vital Signs Temperature 98.0 F 10/05/21 21:01 Pulse Rate 74 10/06/21 00:34 Respiratory Rate 16 10/06/21 00:34 Blood Pressure 147/89 10/06/21 00:34 Pulse Oximetry 98 10/06/21 00:34 [facility] - Male Medical Decision Making Patient is a 50-year-old male comes to the ED with blood in the urine. He has been having a small amount of blood in the initial stream of his urine. Denies any other symptoms. No continuous bleeding or active bleeding from penis. Denies any pain. Vitals are stable. Exam of patient is benign he appears in no acute distress or pain. White blood cell count 12.4 and the rest of CBC and CMP were unremarkable. UA showed some blood but no concerns for any infection. CT of the abdomen showed a lesion on the liver and a 10 mm calcified prostate stone. I placed an order with case management for patient to be referred to Dr. Anderson the urologist for follow-up on the hematuria and prostate stone. I also placed an order with case management for patient be referred to a primary care physician. Patient was told about the liver lesion seen on CT scan and made him aware this needs further evaluation. I stressed with him to follow-up with his primary care physician about the liver lesion at next appointment. Patient diagnosed with hematuria and calculus of the prostate and was discharged home. He was told case management will be contacting him in the next couple days to set up appointments with Dr. Anderson and a new PCP. Liver lesion findings were also detailed on his printed out discharge paperwork. Patient understood and agreed with plan. Lab Data I reviewed the patient's lab results. : 10/05/21 22:29 10/05/21 22: Radiology Impressions Abdomen/Pelvis CT 10/05/21 23:35 IMPRESSION: 1. 6.5 x 6.2 x 5.4 cm heterogeneous low-density slightly exophytic lobulated lesion in the medial segment left liver adjacent to the gallbladder consistent with benign or malignant liver tumor. 2. 10 mm calcified prostate stone possibly in the prostatic urethra or urethral diverticulum. Laboratory Results WBC 12.4 10^3/uL (4.0-10.0) H 10/05/21 22: RBC 5.21 10^6/uL (4.1-5.3) 10/05/21 22: Hgb 16.6 g/dL (11.7-16.6) 10/05/21 22: Hct 47.8 % (42.0-52.0) 10/05/21 22: MCV 91.7 fl (80-94) 10/05/21 22: MCH 31.9 pg (28.0-34.0) 10/05/21: MCHC 34.7 g/dL (30.0-36.0) 10/05/21 RDW 12.3 % (12.1-15.1) 10/05/21 Plt Count 347 10^3/cmm (130-400) 10/05/21: MPV 8.7 fL (7.4-10.4) 10/05/21 Neut % (Auto) 73.5 % 10/05/21 Lymph % (Auto) 16.8 % 10/05/21 [place] % (Auto) 7.4 % 10/05/21 Eos % (Auto) 1.1 % 10/05/21 Baso % (Auto) 0.6 % 10/05/21 Neut # (Auto) 9.08 10^3/uL (1.8-7.7) H 10/05/21 Lymph # (Auto) 2.1 10^3/uL (0.8-4.8) 10/05/21 [place] # (Auto) 0.9 10^3/uL (0.2-0.9) 10/05/21 Eos # (Auto) 0.1 10^3/uL (0.0-0.8) 10/05/21 Baso # (Auto) 0.1 10^3/uL (0.0-0.1) 10/05/21 Nucleated RBC % (auto) 0 % 10/05/21 Nucleated RBCs # 0.0 /100WBC 10/05/21 PT 11.90 SECONDS (12.1-14.9) L 10/05/21 INR 0.85 (0.8-1.2) 10/05/21: Sodium 138 mmol/L (136-145) 10/05/21 Potassium 4.9 mmol/L (3.5-5.1) 10/05/21 Chloride 102 mmol/L (98-107) 10/05/21 Carbon Dioxide 26 mmol/L (22-29) 10/05/21: Anion Gap 14.9 (5-19) 10/05/21: BUN 12 mg/dL (6-20) 10/05/21: Creatinine 0.9 mg/dL (0.7-1.2) 10/05/21: GFR Calculation 89.0 mL/min (90-130) L 10/05/21: Glucose 111 mg/dL (65-115) 10/05/21: Calculated Osmolality 286 mOsm/kg (285-295) 10/05/21: Calcium 9.6 mg/dL (8.5-10.5) 10/05/21: Total Bilirubin 0.3 mg/dL (0.15-1.2) 10/05/21: AST 24 U/L (0-40) 10/05/21: ALT 41 U/L (0-41) 10/05/21: Alkaline Phosphatase 94 IU/L (40-130) 10/05/21: Total Protein 7.1 g/dL (6.6-8.7) 10/05/21: Albumin 4.4 g/dL (3.5-5.2) 10/05/21: Globulin 2.7 g/dL (1.3-4.6) 10/05/21: Urine Color Yellow (Yellow) 10/05/21: Urine Appearance Sl hazy (CLEAR) 10/05/21: Urine pH 7 (5-7) 10/05/21: Ur Specific [place] 1.005 (1.005-1.030) 10/05/21: Urine Protein Neg (Negative) 10/05/21: Urine Glucose (UA) Norm (Normal) 10/05/21: Urine Ketones Negative (Negative) 10/05/21: Urine Blood 3+ (Negative) H 10/05/21: Urine Nitrate Negative (Negative) 10/05/21: Urine Bilirubin Neg (Negative) 10/05/21: Urine Urobilinogen Norm mg/dL (Negative) 10/05/21: Ur Leukocyte Esterase Negative (Negative) 10/05/21:30 Urine RBC >100 /hpf (0-2) H 10/05/21 21:30 Urine WBC 0-4 /hpf (0-5) H 10/05/21 21:30 Ur Squamous Epith Cells 0-4 /hpf (0-5) H 10/05/21 21:30 Amorphous Sediment Not Reportable 10/05/21 21:30 Urine Bacteria Trace /hpf (NONE) 10/05/21 21:30 Urine Sperm 1+ /hpf 10/05/21 21:30 Discharge Plan Discharge Patient Disposition: Home Clinical Impression: Hematuria, Calculus of prostate Condition: Stable Prescriptions: New prednisone 20 mg tablet 20 mg PO BID 5 Days Qty: 10 0RF No Action losartan 25 mg tablet 25 mg PO DAILY 30 Days Qty: 30 5RF clopidogrel 75 mg tablet See Rx Instructions .ROUTE .COMPLEX Qty: 90 3RF Dose Instruction: TAKE 1 TABLET BY MOUTH DAILY Rx Instructions: TAKE 1 TABLET BY MOUTH DAILY aspirin 81 mg tablet,delayed release (DR/EC) See Rx Instructions .ROUTE .COMPLEX Qty: 100 3RF Dose Instruction: TAKE 1 TABLET BY MOUTH ONCE DAILY Rx Instructions: TAKE 1 TABLET BY MOUTH ONCE DAILY atorvastatin 80 mg tablet See Rx Instructions .ROUTE .COMPLEX Qty: 90 3RF Dose Instruction: TAKE 1 TABLET BY MOUTH AT BEDTIME Rx Instructions: TAKE 1 TABLET BY MOUTH AT BEDTIME Zoloft 100 mg Tablet 100 mg PO BEDTIME 0RF Vistaril 25 mg capsule 25 mg PO TID PRN (Reason: anxiety) Qty: 14 0RF Discharge Orders: Discharge ED (Routine); Ordered 10/06/21 Ordered By: Armando Parekh Referrals: Carmelo Alvarado MD [Primary Care Provider] - Discharge Diet: Regular Discharge Activity: Resume usual activity Activity Restrictions/Additional Instructions: Follow-up with medical provider as directed. Case management should be contacting you in the next several days to set up an appointment with the urologist Dr. Anderson for further evaluation of hematuria and stone and prostate. The CT also noted an incidental finding of a lesion on the liver that would need follow-up evaluation. discuss CT findings with primary care physician at next appointment, so they can perform further outpatient followup as needed. Return to the ER or your medical provider if condition worsens. Please read and understand discharge instructions. Thank you for choosing [facility] for your healthcare needs today. Please realize this is an emergency room and that we are providing you with a medical screening exam and this may not be complete and all inclusive of all the testing and or work up that you may need to determine your ailment or severity of your illness. It is very important that you follow up as instructed or that you return to the Emergency Department should you have concerns or if your condition changes or worsens in any way. Coding Level of Care Code ED Kitchenhand for Lorraineg Fwd Exam Comprehensive
[2021-10-06 00:34] VITALS: BP 147/89; PULSE 74; RESP 16; O2SAT 98
[2021-10-06 02:59] VITALS: BP 146/93; PULSE 74; RESP 16; O2SAT 97
--- NOTE | 2021-10-06 09:49 | DCPLANNER ---
Addendum entered by Kasandra Do 11/05/21 09:01: Rosemary from the office of Dr. Anderson contacted case making machine operator stating that the appointment scheduled for 11.17.21 was cancelled, due to not being able to reach patient. Addendum entered by Kasandra Do 10/09/21 09:10: Patient has a follow up appointment scheduled for Wednesday, November 17, 2021 at 1:[address] Anderson. Clinic will call patient with appointment information. Original Note: water resource manager had message to schedule a follow up appointment for patient with Dr. Anderson. water resource manager emailed patients information to Scott Riley and Julie in the office of Dr. Anderson. Patients information will be printed and reviewed. Clinic will call patient with appointment information.
--- NOTE | 2021-10-06 11:16 | DCPLANNER ---
production reproduction manager had message to speak with patient about getting established with a primary care physician. production reproduction manager called phone number [phone], unable to speak with patient at this time, a voicemail was left for patient to return case checker phone call.
== END 2021-10-06 02:59 | disposition home or self-care (01) ==
PROVIDERS: Emergency Medicine; Emergency Provider Physician Assistant; PCP Family Medicine
DX: R31.9 Hematuria, unspecified (principal); N42.0 Calculus of prostate; Z79.02 Long term (current) use of antithrombotics/antiplatelets; Z79.82 Long term (current) use of aspirin; I25.10 Atherosclerotic heart disease of native coronary artery without angina pectoris; I10 Essential (primary) hypertension; E78.5 Hyperlipidemia, unspecified; Z87.891 Personal history of nicotine dependence
CPT/HCPCS: 74176; 80053; 81001; 85025; 85610; 87086; 99283

== ENCOUNTER 2022-02-02 11:27 | Outpatient (CLI) | payer OTHER, SELFPAY ==
[2022-02-03 00:12] LABS: Alanine Aminotransferase 39 U/L (0-41); Albumin Level 4.3 g/dL (3.5-5.2); Alkaline Phosphatase 86 IU/L (40-130); Aspartate Amino Transferase 25 U/L (0-40); Creatine Phosphokinase 48 U/L (39-308); Globulin 2.3 g/dL (1.3-4.6); Total Bilirubin 0.6 mg/dL (0.15-1.2); Total Protein 6.6 g/dL (6.6-8.7)
[2022-02-03 00:17] LABS: Testosterone Total 539.3 ng/dL (193-740)
[2022-02-03 13:06] LABS: Chol HDL Ratio 4.53 mg/dL (1.0-5.00); Cholesterol 163 mg/dL (0-200); HDL Cholesterol 36 mg/dL (60-100); LDL Cholesterol Calculated 81 mg/dL (50-129); LDL HDL Ratio 2.25 RATIO (0.00-3.22); Triglycerides 228 mg/dL (0-150)
== END 2022-02-02 11:28 | disposition home or self-care (01) ==
LOC: LAB 11:29
PROVIDERS: PCP Family Medicine; Visit Provider Internal Medicine Cardiovascular Disease
DX: E78.5 Hyperlipidemia, unspecified (principal)
CPT/HCPCS: 36415; 80061; 80076; 82550; 84403

== ENCOUNTER 2022-08-08 18:44 | Emergency (ER) | payer SELFPAY ==
[2022-08-08 19:04] VITALS: BP 138/97; PULSE 97; RESP 16; TEMP 37.3; O2SAT 98; BMI 26.7
--- NOTE | 2022-08-08 21:19 | ECG_ITS ---
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 Measurements Intervals [place] Rate: 82 P: 51 [place]: 150 QRS: 24 QRSD: 94 T: 46 QT: 372 QTc: 436 Interpretive Statements SINUS RHYTHM Compared to ECG 10/04/2020 22:13:45 T-wave abnormality no longer present Electronically Signed On 08-10-2022 7:43:32 MACHINE HEEL BUILDER by Tc Alicea M.D. [email or web address] children's hospitalHats Off Technologymetrohealth cleveland heights medical centerZytoprotec/store/OM/[id number]/[id number]
--- NOTE | 2022-08-08 21:20 | W.ED.ANXIETY ---
HPI - Anxiety General: Chief Complaint: Anxiety Stated Complaint: Panic Attach\Anxiety Time Seen by Provider: 08/08/22 21:05 History of Present Illness: Patient is a 51-year-old male comes to the ED with panic attack. Patient says he has a history of panic attacks and anxiety and is currently taking Lexapro to help with his anxiety. He is under a lot of stress currently and having some marital issues. Today he developed a panic attack more he felt tingly throughout his body, shortness of breath and had an episode of emesis. Denies any chest pain. He does not have any medication for acute anxiety, because he ran out of his previously prescribed Vistaril. Denies any SI or HI. His symptoms have improved some while in the waiting room here in the ED. Associated symptoms: Deny chest pain, chills, fever(s), headache(s), nausea, palpitations or vomiting Review of Systems Const: Denies: fever(s), chills or fatigue Eyes: Denies: change in vision or eye discomfort ENMT: Denies: throat pain, odynophagia, nasal discharge or nasal congestion Card: Denies: chest pain, palpitations, edema, swelling of feet/ankles, dyspnea on exertion or orthopnea Resp: Denies: dyspnea, productive cough or non-productive cough GI: Denies: abdominal pain, nausea, vomiting, diarrhea, constipation or hematochezia : Denies: flank pain, difficulty urinating, dysuria or hematuria Musc: Denies: neck pain, back pain or extremity swelling Skin/Breast: Denies: rash or new lesions Neuro: Denies: headache(s), numbness in extremities or weakness in extremities Psych: Reports: anxiety and panic attacks PFSH ED PFSH: Medical History Atherosclerosis of coronary artery Benign essential hypertension with target blood pressure below 140/90 Dyslipidemia GERD (gastroesophageal reflux disease) Hypertension Nicotine dependence Surgical History No pertinent past surgical history Family History Father CAD (coronary artery disease), Onset Age: 40 Brother Renal cell carcinoma Family/Other CAD (coronary artery disease) Cancer Diabetes Grandfather Dementia Denies family history of Clotting disorder Chronic kidney disease (CKD) Suicide Anesthesia complication Bleeding disorder Lung disease Stroke Social History Smoking and tobacco status: former smoker Alcohol intake: current Alcohol intake frequency: holidays/special occasions only Physical Exam Const: COMMON NORMALS: no acute distress, patient oriented x3, healthy appearing and alert GENERAL APPEARANCE: cooperative and anxious HENMT: COMMON NORMALS: normocephalic HEAD & SCALP: normocephalic MOUTH: Normal oral and palatal mucosa present THROAT: posterior oropharynx normal and uvula midline Neck/C-Spine: COMMON NORMALS: supple GENERAL: Yes normal visual inspection Resp: COMMON NORMALS: normal respiratory effort, No retractions, No use of accessory muscles and clear to auscultation bilaterally AUSCULTATION: clear to auscultation bilaterally Cardio: COMMON NORMALS: regular rate, regular rhythm, S1 normal heart sound present, S2 normal heart sound present, No gallops present (Cardio), No clicks present (Cardio), No murmurs present (Cardio) and Peripheral pulses 2+ throughout RATE: regular rate RHYTHM: regular rhythm HEART SOUNDS: S1 normal heart sound present and S2 normal heart sound present PERIPHERAL PULSES: Peripheral pulses 2+ throughout GI: COMMON NORMALS: Normal to inspection, nondistended, normoactive bowel sounds present, Soft to palpation, non-tender and no masses PALPATION: Yes Soft to palpation : COMMON NORMALS: Yes no CVA tenderness BLADDER/KIDNEY EXAM: Yes no CVA tenderness Back/Pelvis: COMMON NORMALS: no CVA tenderness Extremity: COMMON NORMALS: normal to inspection Neuro: COMMON NORMALS: patient oriented x3 SENSORIUM/ORIENTATION: Yes alert GAIT: Yes Normal gait present Skin: GENERAL SKIN EXAM: dry skin Course Vital Signs: Vital signs: Vital Signs Temperature 99.1 F 08/08/22 19:04 Pulse Rate 71 08/08/22 22:48 Respiratory Rate 16 08/08/22 22:48 Blood Pressure 131/72 08/08/22 22:48 Pulse Oximetry 99 08/08/22 22:48 Oxygen Delivery Me thod 08/08/22 19:04 MDM - Anxiety Medical Decision Making Patient is a 51-year-old male comes to the ED with acute anxiety. He has a history of panic attacks and anxiety and says that he has been having some family issues which is caused a lot of stress and he had a panic attack tonight. Denies any chest pain or shortness of breath. Vitals are stable. Exam of patient is nontoxic and in no acute distress or pain. CBC and CMP are unremarkable. Baseline troponin is normal. EKG shows normal sinus rhythm with no ST segment elevation or depression seen. He was diagnosed with acute anxiety and discharged home with a prescription for Vistaril. Told to follow-up with his PCP within the next week for reevaluation. Return to ED precautions given. Patient understood and agree with plan. Lab Data I reviewed the patient's lab results. 08/08/22 21: Laboratory Results WBC 7.8 10^3/uL (4.0-10.0) 08/08/22 21: RBC 5.39 10^6/uL (4.1-5.3) H 08/08/22 21: Hgb 17.5 g/dL (11.7-16.6) H 08/08/22: Hct 52.6 % (42.0-52.0) H 08/08/22: MCV 97.6 fl (80-94) H 08/08/22 21: MCH 32.5 pg (28.0-34.0) 08/08/22: MCHC 33.3 g/dL (30.0-36.0) 08/08/22 21: RDW 12.3 % (12.1-15.1) 08/08/22 21: Plt Count 316 10^3/cmm (130-400) 08/08/22 21: MPV 9.0 fL (7.4-10.4) 08/08/22: Neut % (Auto) 65.0 % 08/08/22: Lymph % (Auto) 25.6 % 08/08/22: [place] % (Auto) 7.6 % 08/08/22: Eos % (Auto) 0.6 % 08/08/22 21: Baso % (Auto) 0.8 % 08/08/22: Neut # (Auto) 5.07 10^3/uL (1.8-7.7) 08/08/22: Lymph # (Auto) 2.0 10^3/uL (0.8-4.8) 08/08/22 21:28 [place] # (Auto) 0.6 10^3/uL (0.2-0.9) 08/08/22 21: Eos # (Auto) 0.1 10^3/uL (0.0-0.8) 08/08/22 21: Baso # (Auto) 0.1 10^3/uL (0.0-0.1) 08/08/22 21: Nucleated RBC % (auto) 0 % 08/08/22 21: Nucleated RBCs # 0.0 /100WBC 08/08/22 21:28 Sodium 139 mmol/L (136-145) 08/08/22 21:50 Potassium 4.0 mmol/L (3.5-5.1) 08/08/22 21:50 Chloride 104 mmol/L (98-107) 08/08/22 21:50 Carbon Dioxide 26 mmol/L (22-29) 08/08/22 21:50 Anion Gap 13.0 (5-19) 08/08/22 21:50 BUN 11 mg/dL (6-20) 08/08/22 21:50 Creatinine 0.9 mg/dL (0.7-1.2) 08/08/22 21:50 GFR Calculation 88.6 mL/min (90-130) L 08/08/22 21:50 Glucose 100 mg/dL (65-115) 08/08/22 21:50 Calculated Osmolality 287 mOsm/kg (285-295) 08/08/22 21:50 Calcium 9.6 mg/dL (8.5-10.5) 08/08/22 21:50 Total Bilirubin 0.5 mg/dL (0.15-1.2) 08/08/22 21:50 AST 16 U/L (0-40) 08/08/22 21:50 ALT 21 U/L (0-41) 08/08/22 21:50 Alkaline Phosphatase 80 U/L (40-130) 08/08/22 21:50 Troponin T Gen 5 ng/L 6 ng/L (0-15) 08/08/22 21:50 Total Protein 7.4 g/dL (6.6-8.7) 08/08/22 21:50 Albumin 4.2 g/dL (3.5-5.2) 08/08/22 21:50 Globulin 3.2 g/dL (1.3-4.6) 08/08/22 21:50 EKG Data EKG 1: EKG interpretation date: 08/08/22 Interpretation: Sinus rhythm, no ST segment elevation or depression seen. 82 bpm. Discharge Plan Discharge Patient Disposition: Home Clinical Impression: Acute anxiety Condition: Stable Prescriptions: New hydroxyzine pamoate 50 mg capsule 50 mg PO Q8H PRN (Reason: acute anxiety) Qty: 30 0RF No Action escitalopram oxalate [Lexapro] 10 mg tablet 10 mg PO DAILY aspirin 81 mg tablet,delayed release (DR/EC) See Rx Instructions .ROUTE .COMPLEX Qty: 100 3RF Dose Instruction: TAKE 1 TABLET BY MOUTH ONCE DAILY Rx Instructions: TAKE 1 TABLET BY MOUTH ONCE DAILY atorvastatin 80 mg tablet 40 mg PO DAILY Qty: 90 3RF ezetimibe [Zetia] 10 mg tablet 10 mg PO DAILY Qty: 90 3RF clopidogrel 75 mg tablet 75 mg PO DAILY Qty: 90 3RF losartan 25 mg tablet 25 mg PO DAILY Qty: 90 1RF Vistaril 25 mg capsule 25 mg PO TID PRN (Reason: anxiety) Qty: 14 0RF Discharge Orders: Discharge ED (Routine); Ordered 08/08/22 Ordered By: Armando Parekh Referrals: Carmelo Alvarado MD [Primary Care Provider] - Discharge Diet: Regular Discharge Activity: Increase activity as tolerated Patient Instructions: Anxiety (ED), Panic Attack (ED) Activity Restrictions/Additional Instructions: Follow-up with medical provider as directed in the next 7 to 10 days for reevaluation. Take medications as prescribed. Return to the ER or your medical provider if condition worsens. Please read and understand discharge instructions. Thank you for choosing [facility] for your healthcare needs today. Please realize this is an emergency room and that we are providing you with a medical screening exam and this may not be complete and all inclusive of all the testing and or work up that you may need to determine your ailment or severity of your illness. It is very important that you follow up as instructed or that you return to the Emergency Department should you have concerns or if your condition changes or worsens in any way. Coding Level of Care Code ED Outpatient Admitting Clerk for Lorraineg Fwd Exam Comprehensive
[2022-08-08 21:32] LABS: Basophils # 0.1 10^3/uL (0.0-0.1); Basophils % 0.8 %; Eosinophils # 0.1 10^3/uL (0.0-0.8); Eosinophils % 0.6 %; Hematocrit 52.6 % (42.0-52.0); Hemoglobin 17.5 g/dL (11.7-16.6); Lymphocytes % 25.6 %; Mean Corpuscular HGB Conc 33.3 g/dL (30.0-36.0); Mean Corpuscular Hemoglobin 32.5 pg (28.0-34.0); Mean Corpuscular Volume 97.6 fl (80-94); Monocytes # 0.6 10^3/uL (0.2-0.9); Monocytes % 7.6 %; Neutrophils # 5.07 10^3/uL (1.8-7.7); Nucleated Red Blood Cells % 0 %; Platelet Count 316 10^3/cmm (130-400); Red Blood Count 5.39 10^6/uL (4.1-5.3); Red Cell Distribution Width 12.3 % (12.1-15.1); White Blood Count 7.8 10^3/uL (4.0-10.0)
[2022-08-08 22:15] LABS: Troponin T (5th) Once 6 ng/L (0-15)
[2022-08-08 22:16] LABS: Alanine Aminotransferase 21 U/L (0-41); Albumin Level 4.2 g/dL (3.5-5.2); Alkaline Phosphatase 80 U/L (40-130); Aspartate Amino Transferase 16 U/L (0-40); Blood Urea Nitrogen 11 mg/dL (6-20); Calcium 9.6 mg/dL (8.5-10.5); Carbon Dioxide 26 mmol/L (22-29); Chloride 104 mmol/L (98-107); Globulin 3.2 g/dL (1.3-4.6); Glomerular Filtration Rate 88.6 mL/min (90-130); Glucose 100 mg/dL (65-115); Osmolality Calculated 287 mOsm/kg (285-295); Sodium 139 mmol/L (136-145); Total Bilirubin 0.5 mg/dL (0.15-1.2); Total Protein 7.4 g/dL (6.6-8.7)
[2022-08-08] MEDS: LORazepam 1 mg Tablet PO (22:46)
[2022-08-08 22:48] VITALS: BP 131/72; PULSE 71; RESP 16; O2SAT 99
== END 2022-08-08 22:48 | disposition home or self-care (01) ==
PROVIDERS: Emergency Provider Physician Assistant; PCP Family Medicine
DX: F41.9 Anxiety disorder, unspecified (principal); Z79.82 Long term (current) use of aspirin; Z79.02 Long term (current) use of antithrombotics/antiplatelets; Z87.891 Personal history of nicotine dependence; I25.10 Atherosclerotic heart disease of native coronary artery without angina pectoris; I10 Essential (primary) hypertension; E78.5 Hyperlipidemia, unspecified
CPT/HCPCS: 80053; 84484; 85025; 93005; 99284

== ENCOUNTER 2023-04-03 21:29 | Emergency (ER) | payer OTHER, SELFPAY ==
[2023-04-03 21:45] VITALS: BP 117/80; PULSE 89; RESP 16; TEMP 36.9; O2SAT 100; BMI 25.4
--- NOTE | 2023-04-03 22:31 | ED_ITS ---
HPI - GI Bleed General: Chief complaint: GI Bleed Stated complaint: Pulled Muscle ABD Time Seen by Provider: 04/03/23 21:54 History of Present Illness: 52-year-old male presents emergency room with the complaint of rectal bleeding for the past 3 days. Also reveals some diarrhea and bright red blood stool. Denies any sick contact or rectal pain. Abdominal pain, no nausea, vomiting, vomiting blood or coughing up blood. Dark stool. Associated symptoms: Denies abdominal pain, nausea or vomiting Review of Systems General: Reports: 10 or more systems reviewed and unremarkable except in HPI and below GI: Reports: diarrhea and hematochezia; Denies: abdominal pain, nausea, vomiting, hematemesis, coffee ground emesis, dysphagia, heartburn, fecal incontinence, change in bowel habits, pain on defecation, rectal pain or mucus in stool PFSH ED PFSH: Medical History Atherosclerosis of coronary artery Benign essential hypertension with target blood pressure below 140/90 Dyslipidemia GERD (gastroesophageal reflux disease) Hypertension Nicotine dependence Surgical History No pertinent past surgical history Family History Father CAD (coronary artery disease), Onset Age: 40 Brother Renal cell carcinoma Family/Other CAD (coronary artery disease) Cancer Diabetes Grandfather Dementia Denies family history of Clotting disorder Chronic kidney disease (CKD) Suicide Anesthesia complication Bleeding disorder Lung disease Stroke Social History Smoking and tobacco status: former smoker Alcohol intake: current Alcohol intake frequency: holidays/special occasions only Substance/Drug Use: never Physical Exam Chest: COMMONS NORMALS: normal inspection of the chest, normal palpation of entire chest wall, normal inspection of the breasts and normal palpation of the breasts Breast/axilla inspection: Yes normal inspection of the breasts BREAST/AXILLA PALPATION: Yes normal palpation of the breasts Resp: COMMON NORMALS: normal respiratory effort, No retractions, No use of accessory muscles, clear to auscultation bilaterally and percussion normal AUSCULTATION: clear to auscultation bilaterally PERCUSSION: percussion normal GI: COMMON NORMALS: Soft to palpation INSPECTION: No Laceration(s) present (GI) AUSCULTATION: Yes normoactive bowel sounds PALPATION: Yes Soft to palpation PERCUSSION: normal to percussion RECTAL EXAM: Yes visual insp ection normal, Yes normal sphincter tone, Yes heme positive stool, No Rectal prolapse, No Lesions present (GI), No Fistula present (GI), No Laceration(s) present (GI), No Excoriation present (GI), No fecal impaction, No Anal fissure(s) present, No mass and No tenderness Skin: COMMON NORMALS: no rashes or lesions noted, no wounds, turgor normal, no jaundice, no petechiae and no mottling GENERAL SKIN EXAM: no rashes or lesions noted and turgor normal Course Vital Signs: Vital signs: Vital Signs Temperature 98.5 F 04/03/23 21:45 Pulse Rate 89 04/04/23 00:10 Respiratory Rate 16 04/04/23 00:10 Blood Pressure 117/80 04/03/23 21:45 Pulse Oximetry 96 04/04/23 00:10 Oxygen Delivery Me thod Room Air 04/03/23 21:45 MDM - GI Bleed Medical Decision Making Patient made comfortable emergency room and had extensive work-up done including CBC CMP. Patient was reassured due to further hemoglobin is stable we will refer patient to see GI for further evaluation and treatment. Differential Diagnosis Likely hemorrhoids, infectious diarrhea, esophageal varices, gastritis, Adelia- Mukherjee syndrome, Upper gastrointestinal hemorrhage, Lower gastrointestinal hemorrhage, hematochezia, melena and anal fissure Lab Data 04/03/23 22:45 04/03/23 22:45 Laboratory Results WBC 7.71 10^3/uL (3.29-11.43) 04/03/23 22:45 RBC 4.79 10^6/uL (3.85-5.65) 04/03/23 22:45 Hgb 15.50 g/dL (11.27-16.99) 04/03/23 22:45 Hct 45.1 % (37-53) 04/03/23 22:45 MCV 94.2 fl (82-101) 04/03/23 22:45 MCH 32.4 pg (27-33) 04/03/23 22:45 MCHC 34.4 g/dL (30-55) 04/03/23 22:45 RDW 12.4 % (12.1-15.1) 04/03/23 22:45 Plt Count 288 10^3/cmm (157-399) 04/03/23 22:45 MPV 9.1 fL (7.4-10.4) 04/03/23 22:45 Neut % (Auto) 77.0 % 04/03/23 22:45 Lymph % (Auto) 13.7 % 04/03/23 22:45 [place] % (Auto) 7.1 % 04/03/23 22:45 Eos % (Auto) 1.2 % 04/03/23 22:45 Baso % (Auto) 0.6 % 04/03/23 22:45 Neut # (Auto) 5.93 10^3/uL (1.8-7.7) 04/03/23 22:45 Lymph # (Auto) 1.1 10^3/uL (0.8-4.8) 04/03/23 22:45 [place] # (Auto) 0.6 10^3/uL (0.2-0.9) 04/03/23 22:45 Eos # (Auto) 0.1 10^3/uL (0.0-0.8) 04/03/23 22:45 Baso # (Auto) 0.1 10^3/uL (0.0-0.1) 04/03/23 22:45 Nucleated RBC % (auto) 0 % 04/03/23 22:45 Nucleated RBCs # 0.0 /100WBC 04/03/23 22:45 Sodium 136 mmol/L (136-145) 04/03/23 22:45 Potassium 3.9 mmol/L (3.5-5.1) 04/03/23 22:45 Chloride 101 mmol/L (98-107) 04/03/23 22:45 Carbon Dioxide 27 mmol/L (22-29) 04/03/23 22:45 Anion Gap 11.9 (5-19) 04/03/23 22:45 BUN 11 mg/dL (6-20) 04/03/23 22:45 Creatinine 0.8 mg/dL (0.7-1.2) 04/03/23 22:45 GFR Calculation 101.1 mL/min (90-130) 09/17/23 22:45 Glucose 115 mg/dL (65-115) 04/03/23 22:45 Calculated Osmolality 282 mOsm/kg (285-295) L 04/03/23 22:45 Calcium 8.8 mg/dL (8.5-10.5) 04/03/23 22:45 Total Bilirubin 0.4 mg/dL (0.15-1.2) 04/03/23 22:45 AST 18 U/L (0-40) 04/03/23 22:45 ALT 19 U/L (0-41) 04/03/23 22:45 Alkaline Phosphatase 86 U/L (40-130) 04/03/23 22:45 Total Protein 6.5 g/dL (6.6-8.7) L 04/03/23 22:45 Albumin 4.1 g/dL (3.5-5.2) 04/03/23 22:45 Globulin 2.4 g/dL (1.3-4.6) 04/03/23 22:45 No radiology studies performed this visit Discharge Plan Discharge Patient Disposition: Home Clinical Impression: Lower gastrointestinal hemorrhage Condition: Stable Prescriptions: No Action escitalopram oxalate [Lexapro] 10 mg tablet 10 mg PO DAILY aspirin 81 mg tablet,delayed release (DR/EC) See Rx Instructions .ROUTE .COMPLEX Qty: 100 3RF Dose Instruction: TAKE 1 TABLET BY MOUTH ONCE DAILY Rx Instructions: TAKE 1 TABLET BY MOUTH ONCE DAILY atorvastatin 80 mg tablet 40 mg PO DAILY Qty: 90 3RF ezetimibe [Zetia] 10 mg tablet 10 mg PO DAILY Qty: 90 3RF clopidogrel 75 mg tablet 75 mg PO DAILY Qty: 90 3RF losartan 25 mg tablet 25 mg PO DAILY Qty: 60 0RF Rx Instructions: MUST make appointment and be seen for further refills Vistaril 25 mg capsule 25 mg PO TID PRN (Reason: anxiety) Qty: 14 0RF hydroxyzine pamoate 50 mg capsule 50 mg PO Q8H PRN (Reason: acute anxiety) Qty: 30 0RF Discharge Orders: Discharge ED (Routine); Ordered 04/03/23 Ordered By: Sayda Danielson Referrals: Jorgito Cannon MD [Physician] - 1-3 days Carmelo Alvarado MD [Primary Care Provider] - Patient Instructions: Opioid Safety, Pain Management Coding Level of Care Code ED Chemical Etch Operator for Lauryn Shin
[2023-04-03 23:24] LABS: Basophils # 0.1 10^3/uL (0.0-0.1); Basophils % 0.6 %; Eosinophils # 0.1 10^3/uL (0.0-0.8); Eosinophils % 1.2 %; Hematocrit 45.1 % (37-53); Lymphocytes # 1.1 10^3/uL (0.8-4.8); Lymphocytes % 13.7 %; Mean Corpuscular HGB Conc 34.4 g/dL (30-55); Mean Corpuscular Hemoglobin 32.4 pg (27-33); Mean Corpuscular Volume 94.2 fl (82-101); Mean Platelet Volume 9.1 fL (7.4-10.4); Monocytes # 0.6 10^3/uL (0.2-0.9); Monocytes % 7.1 %; Neutrophils # 5.93 10^3/uL (1.8-7.7); Nucleated Red Blood Cells % 0 %; Platelet Count 288 10^3/cmm (157-399); Red Blood Count 4.79 10^6/uL (3.85-5.65); Red Cell Distribution Width 12.4 % (12.1-15.1); White Blood Count 7.71 10^3/uL (3.29-11.43)
[2023-04-03 23:33] LABS: Alanine Aminotransferase 19 U/L (0-41); Albumin Level 4.1 g/dL (3.5-5.2); Alkaline Phosphatase 86 U/L (40-130); Anion Gap 11.9 (5-19); Aspartate Amino Transferase 18 U/L (0-40); Blood Urea Nitrogen 11 mg/dL (6-20); Calcium 8.8 mg/dL (8.5-10.5); Carbon Dioxide 27 mmol/L (22-29); Chloride 101 mmol/L (98-107); Globulin 2.4 g/dL (1.3-4.6); Glomerular Filtration Rate 101.1 mL/min (90-130); Glucose 115 mg/dL (65-115); Osmolality Calculated 282 mOsm/kg (285-295); Potassium 3.9 mmol/L (3.5-5.1); Sodium 136 mmol/L (136-145); Total Bilirubin 0.4 mg/dL (0.15-1.2); Total Protein 6.5 g/dL (6.6-8.7)
[2023-04-04 00:10] VITALS: PULSE 89; RESP 16; O2SAT 96
== END 2023-04-04 00:09 | disposition home or self-care (01) ==
PROVIDERS: Emergency Provider Family Medicine; PCP Family Medicine
DX: K92.2 Gastrointestinal hemorrhage, unspecified (principal); Z79.82 Long term (current) use of aspirin; Z79.02 Long term (current) use of antithrombotics/antiplatelets; I25.10 Atherosclerotic heart disease of native coronary artery without angina pectoris; E78.5 Hyperlipidemia, unspecified; I10 Essential (primary) hypertension; Z87.891 Personal history of nicotine dependence
CPT/HCPCS: 80053; 85025; 99283

== ENCOUNTER 2024-09-20 17:18 | Emergency (ER) | payer OTHER, SELFPAY ==
[2024-09-20 18:23] VITALS: BP 157/99; PULSE 75; RESP 17; TEMP 36.8; O2SAT 96; BMI 26.6
--- NOTE | 2024-09-20 18:26 | ED_ITS ---
HPI - Extremity Injury (Upper) General: Chief Complaint: Wound/Laceration Stated Complaint: cut finger meds Time Seen by Provider: 09/20/24 18:22 Source: patient Mode of arrival: ambulatory Limitations: no limitations History of Present Illness: 53-year-old male presents to the ER for a wound laceration on his dorsal aspect right middle finger. He states this happened at home while he was sharpening his knives. Patient states he is up-to-date on tetanus. Patient states no numbness or tingling but is unable to extend his middle finger. complaint: injury to: right and finger (R. hand middle finger) Onset (ago): hour(s) Other Extremity Injury: Right: fingers (middle) Other injuries: none Place: home Severity: moderate Relieving factors: none Exacerbating factors: movement of extremity Context: laceration Associated symptoms: Reports no associated symptoms; Denies weakness in extremities Treatments prior to arrival: bandage Related Data Home Medications ?Medication ?Instructions ?Recorded ?Confirmed escitalopram oxalate 10 mg tablet 10 mg PO DAILY 12/07 (Lexapro) Previous Rx's ?Medication ?Instructions ?Recorded hydroxyzine pamoate 25 mg capsule 25 mg PO TID PRN anx iety #14 caps 10/04/20 (Vistaril) aspirin 81 mg tablet,delayed See Rx Instructions .Capo schultz 06/29/21 release .COMPLEX #100 tabs atorvastatin 80 mg tablet 40 mg (1/2 x 80 mg) PO DAILY #90 02/03/22 tabs ezetimibe 10 mg tablet (Zetia) 10 mg PO DAILY #90 tabs 02/03/22 clopidogrel 75 mg tablet 75 mg PO DAILY #90 tabs 02/15 02/05 hydroxyzine pamoate 50 mg capsule 50 mg PO Q8H PRN acu te anxiety #30 08/08/22 caps losartan 25 mg tablet 25 mg PO DAILY #60 tabs 01/15 cephalexin 500 mg capsule 500 mg PO Q6H 7 days #28 cap s 09/20/24 Allergies Allergy/AdvReac Type Severity Reaction Status Date / Time No Known Allergies Allergy Verified 08/31/22 09:27 Review of Systems Musc: Reports: extremity pain (R middle finger) and limited range of motion (R middle finger); Denies: joint swelling or joint redness Skin/Breast: Reports: other (finger laceration) Neuro: Denies: headache(s), numbness in extremities or weakness in extremities PFSH ED PFSH: Medical History Atherosclerosis of coronary artery Dyslipidemia Benign essential hypertension with target blood pressure below 140/90 Nicotine dependence GERD (gastroesophageal reflux disease) Hypertension Surgical History No pertinent past surgical history Family History Father CAD (coronary artery disease), Onset Age: 40 Brother Renal cell carcinoma Family/Other CAD (coronary artery disease) Cancer Diabetes Grandfather Dementia Denies family history of Clotting disorder Chronic kidney disease (CKD) Suicide Anesthesia complication Bleeding disorder Lung disease Stroke Social History Smoking and tobacco/nicotine status: former use of tobacco/nicotine Alcohol intake: current Alcohol intake frequency: holidays/special occasions only Substance/Drug Use: never Physical Exam Const: COMMON NORMALS: no acute distress, average body habitus, patient oriented x3, no limitations, healthy appearing, alert and well nourished GENERAL APPEARANCE: cooperative ORIENTATION/CONSCIOUSNESS: Yes awake, Yes oriented to person, Yes oriented to place and Yes oriented to time Extremity: GENERAL: Yes normal exam except as noted RIGHT UPPER EXTREMITY: Yes hand & digits (laceration overlying dorsal R middle finger PIP joint) Right hand and digits: Yes ROM exam (unable to extend digit ), Yes neurovascular exam (normal) and Yes tendon exam (extensor tendon laceration present; no obvious bony involvement) Neuro: COMMON NORMALS: patient oriented x3 SENSORIUM/ORIENTATION: Yes alert, Yes oriented to person, Yes oriented to place and Yes oriented to time Skin: TRAUMA: laceration (R middle finger) sensation intact Procedures Laceration Laceration 1: Site: hand (dorsal R middle finger) Side (If applicable): right Size (cm): 1.5 Description: linear Depth: simple, single layer Local Anesthetic: lidocaine 2% (digital block) Pre-repair: wound explored and irrigated extensively Skin layer closed with: nylon Size (cm): 4-0 Number of sutures: 3 Technique: simple, interrupted Course Vital Signs: Vital signs: Vital Signs Temperature 98.2 F 09/20/24 18:23 Pulse Rate 75 09/20/24 18:23 Respiratory Rate 17 09/20/24 18:23 Blood Pressure 157/99 09/20/24 18:23 Pulse Oximetry 96 09/20/24 18:23 Oxygen Delivery Me thod Room Air 09/20/24 18:23 MDM - Extremity Injury (Upper) Medical Decision Making Patient here with a laceration overlying the dorsal PIP joint of his right middle finger. There is extensor tendon involvement. On patient's finger XR I do not appreciate any bony involvement on his AP/oblique views. On his lateral there could be very slight bony contact. Patient's finger will be copiously irrigated and repaired as documented. He will be placed in a finger splint. Will place him on prophylactic antibiotics. Will get him set up with Dr. Parekh for further evaluation and repair of extensor laceration. Patient did have a sm aller laceration to the dorsum of the right index finger. This was not deep and copiously irrigated and repaired with a steri-strip. Lab Data Radiology Impressions Finger X-Ray 09/20/24 18:35 IMPRESSION: No acute skeletal findings. XR interpretation done by ED provider, pending radiology final review Discharge Plan Discharge Patient Disposition: Home Clinical Impression: Laceration of extensor muscle, fascia and tendon of right middle finger at wrist and hand level, initial encounter Laceration of right middle finger Qualifiers: Encounter type: initial encounter Damage to nail status: without damage Foreign body presence: without foreign body Qualified Code(s): S61.212A - Laceration without foreign body of right middle finger without damage to nail, initial encounter Condition: Stable Prescriptions: New cephalexin 500 mg capsule 500 mg PO Q6H 7 Days Qty: 28 0RF No Action escitalopram oxalate [Lexapro] 10 mg tablet 10 mg PO DAILY aspirin 81 mg tablet,delayed release (DR/EC) See Rx Instructions .ROUTE .COMPLEX Qty: 100 3RF Dose Instruction: TAKE 1 TABLET BY MOUTH ONCE DAILY Rx Instructions: TAKE 1 TABLET BY MOUTH ONCE DAILY atorvastatin 80 mg tablet 40 mg PO DAILY Qty: 90 3RF ezetimibe [Zetia] 10 mg tablet 10 mg PO DAILY Qty: 90 3RF clopidogrel 75 mg tablet 75 mg PO DAILY Qty: 90 3RF losartan 25 mg tablet 25 mg PO DAILY Qty: 60 0RF Rx Instructions: MUST make appointment and be seen for further refills Vistaril 25 mg capsule 25 mg PO TID PRN (Reason: anxiety) Qty: 14 0RF hydroxyzine pamoate 50 mg capsule 50 mg PO Q8H PRN (Reason: acute anxiety) Qty: 30 0RF Discharge Orders: Discharge ED (Routine); Ordered 09/20/24 Ordered By: Shanel Iglesias Referrals: Carmelo Alvarado MD [Primary Care Provider] - Patient Instructions: Finger Laceration (ED), Tendon Laceration (ED) Activity Restrictions/Additional Instructions: Keep wound/laceration clean with warm soap and water twice daily. Monitor for signs of infection such as redness, swelling, increased pain, or drainage. Please seek medical re-evaluation if these occur. If you received sutures today these will need to be removed (unless you were told by the provider that they are absorbable). The provider should have discussed with you the length of time until removal-7 DAYS. You need to stay in your splint at all times apart from when you are cleaning the wound. Case management should reach out to you tomorrow or early next week to help set you up with your follow-up appointment with orthopedics for further evaluation/treatment of your tendon laceration. Print Language: Wallisian Coding Level of Care Code ED Interactive Media Designer for Lauryn Shin
--- NOTE | 2024-09-20 18:35 | XRR_ITS ---
PROCEDURE INFORMATION: Exam: XR Right Finger(s) Exam date and time: 09/20/2024 6:55 PM Age: 53 years old Clinical indication: Injury or trauma; Other: Cut with saw; Laceration; Right; Middle finger; Additional info: Middle finger lac pip joint TECHNIQUE: Imaging protocol: Radiologic exam of the right fingers. Views: Minimum 2 views. COMPARISON: No relevant prior studies available. FINDINGS: Bones/joints: The bones are intact. No fracture. Soft tissues: No visible foreign body. Laceration over the posterior 3rd PIP joint. XR/XR finger RT min 2V [id number] IMPRESSION: No acute skeletal findings.
--- NOTE | 2024-09-21 15:58 | DCPLANNER ---
messaged ortho for er f/u
== END 2024-09-20 19:58 | disposition home or self-care (01) ==
PROVIDERS: Emergency Provider Physician Assistant; PCP Family Medicine
DX: S61.212A Laceration without foreign body of right middle finger without damage to nail, initial encounter (principal); S66.322A Laceration of extensor muscle, fascia and tendon of right middle finger at wrist and hand level, initial encounter; Z79.82 Long term (current) use of aspirin; Z79.02 Long term (current) use of antithrombotics/antiplatelets; Z87.891 Personal history of nicotine dependence; I25.10 Atherosclerotic heart disease of native coronary artery without angina pectoris; E78.5 Hyperlipidemia, unspecified; I10 Essential (primary) hypertension; W26.0XXA Contact with knife, initial encounter
CPT/HCPCS: 13131; 73140; 99283; A6446